=== PATIENT | female | born 1960 | race Caucasian/White ===

== ENCOUNTER 2017-10-14 09:27 | Inpatient (IN) | payer BC ==
[2017-10-14] MEDS ORDERED: TYLENOL 325 MG PO PRN (16:42)
[2017-10-14 17:04] LABS: BASOPHIL % 0.2 % (0.0-0.4); Basophil (Absolute #) 0.02 (0-0.4); Eosinophil % 0.2 % (0.00-5.0); Eosinophil (Absolute #) 0.02 (0-0.5); Granulocyte Absolute (ANC) 7.48 (1.4-6.9); Granulocytes % 72.6 % (36.0-66.0); Hematocrit 33.3 % (35-47); Hemoglobin 11.8 gm/dl (12.0-16.0); Lymphocyte (Absolute #) 1.84 (1.0-4.6); Lymphocytes % 17.8 % (24.0-44.0); Mean Corpuscular Hgb Concent. 35.4 g/dl (32-36); Mean Platelet Volume 10.2 fl (6-9.5); Monocyte (Absolute #) 0.95 (0.0-1.3); Monocytes % 9.2 % (0.0-12.0); Platelet Count 197 K/mm3 (150-450); Red Blood Count 3.47 M/mm3 (4.1-5.4); Red Cell Distribution Width 11.9 % (11.5-14.0); White Blood Count 10.3 K/mm3 (4.0-10.5)
[2017-10-14 17:18] LABS: ALBUMIN 3.8 g/dL (3.5-5.0); ALKALINE PHOSPHATASE 63 U/L (38-126); ANION GAP 11.4 MEQ/L (5-15); BLOOD UREA NITROGEN 8 mg/dL (7-17); CHLORIDE 102 mmol/L (98-107); Carbon Dioxide 26 mmol/L (22-30); Creatinine 1 0.47 mg/dL (0.52-1.04); Glucose 134 mg/dL (74-106); Potassium 3.4 mmol/L (3.5-5.1); SGOT/AST 15 U/L (14-36); SGPT/ALT 11 U/L (0-35); SODIUM 136 mmol/L (137-145); Total Protein 6.8 g/dL (6.3-8.2)
[2017-10-14] MEDS: ROCEPHIN 1 Gm-D5w 50 ml Bag** 1 G/50 ML IVPB IV SCH (17:22)
[2017-10-14] MEDS: Dextrose 5% -0.45 NaCl 1000 ML 1,000 ML IV SCH (17:22)
[2017-10-14] MEDS: Zithromax 500 MG/ 250 ML NaCl Premix 500 MG/250 ML IVPB IV SCH (17:22)
[2017-10-14] MEDS ORDERED: solu-MEDROL 125 MG IV ONE (18:22)
[2017-10-14] MEDS ORDERED: Robitussin 100 MG/5 ML PO PRN (18:23)
[2017-10-14] MEDS ORDERED: Klor Con 10 MEQ PO ONE (18:23)
[2017-10-14] MEDS: DUONEB 0.5-3 MG/3 ml Neb IH SCH ×2 (18:43→22:49)
[2017-10-14] MEDS: Nicoderm CQ 21 MG TOP SCH (18:57)
[2017-10-14] MEDS: solu-MEDROL 125 MG IV SCH (23:57)
[2017-10-15] MEDS: DUONEB 0.5-3 MG/3 ml Neb IH SCH ×6 (02:51→23:57)
[2017-10-15] MEDS: solu-MEDROL 125 MG IV SCH ×4 (06:15→23:53)
[2017-10-15 06:24] LABS: Granulocyte Absolute (ANC) 5.04 (1.4-6.9); Hematocrit 33.9 % (35-47); Hemoglobin 11.8 gm/dl (12.0-16.0); Mean Cell Volume 96.9 fl (78-100); Mean Corpuscular Hemoglobin 33.7 pg (26-32); Mean Corpuscular Hgb Concent. 34.8 g/dl (32-36); Mean Platelet Volume 10.6 fl (6-9.5); Platelet Count 183 K/mm3 (150-450); Red Cell Distribution Width 11.8 % (11.5-14.0); White Blood Count 5.5 K/mm3 (4.0-10.5)
[2017-10-15 06:26] LABS: BLOOD UREA NITROGEN 10 mg/dL (7-17); CHLORIDE 108 mmol/L (98-107); Calcium 9.4 mg/dL (8.4-10.2); Carbon Dioxide 26 mmol/L (22-30); Creatinine 1 0.41 mg/dL (0.52-1.04); Glucose 213 mg/dL (74-106); Potassium 3.8 mmol/L (3.5-5.1); SODIUM 144 mmol/L (137-145)
[2017-10-15 07:34] LABS: Lymphocytes 8 % (24-44); Monocyte 1 % (0.0-12.0); Neutrophils 91 % (36.0-66.0); Total Cells Counted 100
[2017-10-15 07:35] LABS: Platelet Estimate NORMAL (NORMAL)
--- NOTE | 2017-10-15 08:13 | HP ---
HISTORY OF PRESENT ILLNESS: This is a 57 year-old patient of Dr. Anand who presented to [facility] and was found to have a low oxygen saturation of 80-90%. She reported a cough for one week so the nurse practitioner called me concerning a direct admission so she was made a direct admission from [facility]. The patient reports she has had symptoms for a week worse the past the three days with fever up to 102.8F. She reports she would take ibuprofen and this would bring her fever down. She reports decreased energy and shortness of breath when going up and down stairs or walking a short distance along with her heart pounding with the exertion. She reports the cough has been productive of yellow-green phlegm for a week and the cough sometimes wakes her up. She has not been eating as well but has been taking fluids. REVIEW OF SYSTEMS: No nausea or vomiting. No abdominal pain except from the coughing. She has had a headache. No rashes. No lower extremity edema. No dysuria. No constipation. No diarrhea. PAST MEDICAL HISTORY: She had a history of pneumonia in 2005 at which time she used nebulizers and inhalers. No history of asthma or chronic obstructive pulmonary disease. No hospitalizations besides the of her children. PAST SURGICAL HISTORY: Two sections, two D&C's, tonsillectomy, adenoidectomy. MEDICATIONS: Please see the home medication list. ALLERGIES: NKDA. SOCIAL HISTORY: She smoked about three-fourths of a pack of cigarettes a day for the past 16 years. She reports she is planning on quitting. No alcohol use. She is and also has a son that lives at home. PHYSICAL EXAMINATION: VITAL SIGNS: Temperature current 98.8F, temperature max 98.8F, heart rate 97 to 102, respiratory rate 18 to 20, blood pressure 118 over 60, weight 59 kg. Oxygen saturation 90% on room air, 97% on 2 liters nasal cannula. GENERAL: The patient is a pleasant talkative lady sitting up in no acute distress. The family is at the bedside. NECK: Supple. No nuchal rigidity. CVS: Her heart has a regular rate and rhythm. No murmurs, gallops or rubs. CHEST: Breath sounds are equal bilaterally. She has wheezing at the bases bilaterally, crackles and rhonchi in the right side auscultated anteriorly. ABDOMEN: Soft, nontender, nondistended with normal bowel sounds. EXTREMITIES: No clubbing, cyanosis or edema. SKIN: Warm, dry and intact. LABORATORY DATA AND TESTS: The white blood cell count was 10,300 with 72% granulocytes, 17% lymphocytes. Sodium 136, chloride 102, potassium 3.4, glucose 134. Chest x-ray done as an outpatient was read as recurrent right middle lobe infiltrate. Blood cultures and sputum cultures have been ordered. ASSESSMENT AND PLAN: 1) RIGHT MIDDLE LOBE PNEUMONIA: She was started on ceftriaxone and azithromycin. She is getting DuoNeb every four hours. She does have quite a bit of wheezing on her exam. I am concerned that she may have some underlying chronic obstructive pulmonary disease from her tobacco use so I have started Solu-Medrol. Also she has oxygen 2 liters nasal cannula. Will continue close observation. 2) TOBACCO ABUSE: The patient states that she plans on quitting smoking. Will use a nicotine patch here in the hospital.
--- NOTE | 2017-10-15 08:47 | PCM.NOTE ---
Date and Time: 10/15/17 0844 Subjective Assessment: Pt feeling a little better than at discharge. Blas po well. Cough is productive. Subjective fever/chills last night although none recorded. - Review of Systems Constitutional: Fever Objective Exam General Appearance: no apparent distress, alert, other (acutely ill) Neurologic Exam: oriented x 3, cooperative Skin Exam: normal color, warm, dry, No rash Respiratory Exam: rhonchi (LLL, RML), wheezing (scattered throughout), other ( good air exchange), No crackles/rales Cardiovascular Exam: regular rate/rhythm, normal heart sounds, No murmur Extremity Exam: normal inspection, No pedal edema, No swelling Back Exam: normal inspection, No rash OBJECTIVE DATA Vital Signs: Vital Signs - 24 hr Temp Pulse Resp BP Pulse Ox 10/15/17 06:57 97.5 F 76 18 105/57 92 L 10/15/17 04:00 97.4 F 81 14 105/56 93 L 10/15/17 02:52 71 20 90 L 10/15/17 00:00 97.8 F 79 18 106/60 94 L 10/14/17 22:49 88 20 89 L 10/14/17 22:00 92 L 10/14/17 20:00 98.4 F 88 18 107/62 92 L 10/14/17 18:44 78 18 88 L 10/14/17 16:00 97 10/14/17 15:46 98.8 F 97 H 118/60 97 10/14/17 15:42 97 10/14/17 15:39 97 H 20 90 L 10/14/17 15:24 98.8 F 102 H 18 118/60 90 L Oxygen-Last 24 hours O2 Percentage 2 Liters = 28% O2 Percentage 2 Liters = 28% O2 Percentage 2 Liters = 28% Pain Assessment - Last Documented Pain Intensity 0 Pain Scale Used 0-10 Pain Scale Intake and Output: Intake & Output 10/12/17 10/13/17 10/14/17 10/15/17 11:59 11:59 11:59 11:59 Intake Total 2120 Output Total 1650 Balance 470 Weight 59 kg Lab Results: Lab Results-Last 24 Hours 10/14/17 10/14/17 10/15/17 Range/Units 16:45 16:45 05:24 WBC 10.3 5.5 (4.0-10.5) K/mm3 RBC 3.47 L 3.50 L (4.1-5.4) M/mm3 Hgb 11.8 L 11.8 L (12.0-16.0) gm/dl Hct 33.3 L 33.9 L (35-47) % MCV 96.0 96.9 (78-100) fl MCH 34.0 H 33.7 H (26-32) pg MCHC 35.4 34.8 (32-36) g/dl RDW 11.9 11.8 (11.5-14.0) % Plt Count 197 183 (150-450) K/mm3 MPV 10.2 H 10.6 H (6-9.5) fl Gran % 72.6 H (36.0-66.0) % Eos # (Auto) 0.02 (0-0.5) Absolute Lymphs (auto) 1.84 (1.0-4.6) Absolute Monos (auto) 0.95 (0.0-1.3) Lymphocytes % 17.8 L (24.0-44.0) % Monocytes % 9.2 (0.0-12.0) % Eosinophils % 0.2 (0.00-5.0) % Basophils % 0.2 (0.0-0.4) % Absolute Granulocytes 7.48 H 5.04 (1.4-6.9) Segmented Neutrophils 91 H (36.0-66.0) % Lymphocytes (Manual) 8 L (24-44) % Monocytes (Manual) 1 (0.0-12.0) % Basophils # 0.02 (0-0.4) Platelet Estimate NORMAL (NORMAL) Sodium 136 L (137-145) mmol/L Potassium 3.4 L (3.5-5.1) mmol/L Chloride 102 (98-107) mmol/L Carbon Dioxide 26 (22-30) mmol/L Anion Gap 11.4 (5-15) MEQ/L BUN 8 (7-17) mg/dL Creatinine 0.47 L (0.52-1.04) mg/dL Estimated GFR > 60.0 ML/MIN Glucose 134 H (74-106) mg/dL Calcium 9.0 (8.4-10.2) mg/dL Total Bilirubin 0.60 (0.2-1.3) mg/dL AST 15 (14-36) U/L ALT 11 (0-35) U/L Alkaline Phosphatase 63 (38-126) U/L Serum Total Protein 6.8 (6.3-8.2) g/dL Albumin 3.8 (3.5-5.0) g/dL 10/15/17 Range/Units 05:24 WBC (4.0-10.5) K/mm3 RBC (4.1-5.4) M/mm3 Hgb (12.0-16.0) gm/dl Hct (35-47) % MCV (78-100) fl MCH (26-32) pg MCHC (32-36) g/dl RDW (11.5-14.0) % Plt Count (150-450) K/mm3 MPV (6-9.5) fl Gran % (36.0-66.0) % Eos # (Auto) (0-0.5) Absolute Lymphs (auto) (1.0-4.6) Absolute Monos (auto) (0.0-1.3) Lymphocytes % (24.0-44.0) % Monocytes % (0.0-12.0) % Eosinophils % (0.00-5.0) % Basophils % (0.0-0.4) % Absolute Granulocytes (1.4-6.9) Segmented Neutrophils (36.0-66.0) % Lymphocytes (Manual) (24-44) % Monocytes (Manual) (0.0-12.0) % Basophils # (0-0.4) Platelet Estimate (NORMAL) Sodium 144 (137-145) mmol/L Potassium 3.8 (3.5-5.1) mmol/L Chloride 108 H (98-107) mmol/L Carbon Dioxide 26 (22-30) mmol/L Anion Gap 14.0 (5-15) MEQ/L BUN 10 (7-17) mg/dL Creatinine 0.41 L (0.52-1.04) mg/dL Estimated GFR > 60.0 ML/MIN Glucose 213 H (74-106) mg/dL Calcium 9.4 (8.4-10.2) mg/dL Total Bilirubin (0.2-1.3) mg/dL AST (14-36) U/L ALT (0-35) U/L Alkaline Phosphatase (38-126) U/L Serum Total Protein (6.3-8.2) g/dL Albumin (3.5-5.0) g/dL Assessment/Plan (1) Right middle lobe pneumonia Current Visit: No Status: Acute Onset Date: ~10/14/17 Qualifiers: Pneumonia type: due to unspecified organism Qualified Code(s): J18.1 - Lobar pneumonia, unspecified organism Assessment & Plan: On IV rocephin and zithromax, day #2. IV solumedrol 60m q6h. Feeling somewhat better. Will continue current tx; discussed discharge - when afebrile x 24h and feeling better, likely in another day or two. I anticipate she will not be ready to go back to work until early next week. Code(s): J18.1 - LOBAR PNEUMONIA, UNSPECIFIED ORGANISM
[2017-10-15] MEDS: Dextrose 5% -0.45 NaCl 1000 ML 1,000 ML IV SCH (09:04)
[2017-10-15] MEDS: ROCEPHIN 1 Gm-D5w 50 ml Bag** 1 G/50 ML IVPB IV SCH (10:17)
[2017-10-15] MEDS: Zithromax 500 MG/ 250 ML NaCl Premix 500 MG/250 ML IVPB IV SCH (10:17)
[2017-10-15] MEDS: ZOLOFT 50 MG TABLET PO SCH (10:17)
[2017-10-15] MEDS: Nicoderm CQ 21 MG TOP SCH (18:26)
[2017-10-16] MEDS: Dextrose 5% -0.45 NaCl 1000 ML 1,000 ML IV SCH ×2 (00:04→17:18)
[2017-10-16] MEDS: DUONEB 0.5-3 MG/3 ml Neb IH SCH ×6 (03:06→23:04)
[2017-10-16] MEDS: solu-MEDROL 125 MG IV SCH ×3 (05:51→17:58)
--- NOTE | 2017-10-16 09:30 | PCM.NOTE ---
Date and Time: 10/16/17926 Subjective Assessment: patient reports some mild improvement but still very short of breath with exertion and continues to have a harsh cough that is productive Objective Exam General Appearance: no apparent distress, alert Skin Exam: normal color, warm, dry Respiratory Exam: rhonchi, wheezing Cardiovascular Exam: regular rate/rhythm, normal heart sounds Gastrointestinal/Abdomen Exam: soft, No tenderness, No mass Extremity Exam: normal inspection, normal range of motion OBJECTIVE DATA Vital Signs: Vital Signs - 24 hr Temp Pulse Resp BP Pulse Ox 10/16/17 08:00 97.7 F 84 18 98/54 96 10/16/17 07:55 18 10/16/17 07:30 93 L 10/16/17 06:38 84 18 96 10/16/17 04:00 97.8 F 87 18 100/56 93 L 10/16/17 03:00 83 18 93 L 10/16/17 01:00 92 L 10/16/17 00:00 98.5 F 94 H 20 124/63 91 L 10/15/17 23:57 89 18 88 L 10/15/17 19:40 97.6 F 84 18 117/60 91 L 10/15/17 19:39 91 L 10/15/17 19:33 93 H 18 91 L 10/15/17 16:19 97.8 F 100 H 18 131/60 90 L 10/15/17 16:00 90 L 10/15/17 14:49 88 18 91 L 10/15/17 12:11 68 20 120/63 90 L 10/15/17 11:07 85 18 92 L 10/15/17 10:00 92 L Oxygen-Last 24 hours O2 Percentage 3 Liters = 32% O2 Percentage 2 Liters = 28% O2 Percentage 2 Liters = 28% O2 Percentage 2 Liters = 28% Pain Assessment - Last Documented Pain Intensity 0 Pain Scale Used 0-10 Pain Scale Intake and Output: Intake & Output 10/13/17 10/14/17 10/15/17 10/16/17 11:59 11:59 11:59 11:59 Intake Total 2360 1460 Output Total 1650 1450 Balance 710 10 Weight 59 kg Assessment/Plan (1) Right middle lobe pneumonia Current Visit: No Status: Acute Onset Date: ~10/14/17 Qualifiers: Pneumonia type: due to unspecified organism Qualified Code(s): J18.1 - Lobar pneumonia, unspecified organism Assessment & Plan: on rocephin/zithromax, nebs Code(s): J18.1 - LOBAR PNEUMONIA, UNSPECIFIED ORGANISM (2) Acute bronchospasm Current Visit: Yes Status: Acute Assessment & Plan: continue nebs and IV solu medrol
[2017-10-16] MEDS: ZOLOFT 50 MG TABLET PO SCH (10:39)
[2017-10-16] MEDS: ROCEPHIN 1 Gm-D5w 50 ml Bag** 1 G/50 ML IVPB IV SCH (10:39)
[2017-10-16] MEDS: Zithromax 500 MG/ 250 ML NaCl Premix 500 MG/250 ML IVPB IV SCH (11:37)
[2017-10-16] MEDS: MOTRIN 600 MG PO PRN (11:46)
[2017-10-16] MEDS: Nicoderm CQ 21 MG TOP SCH (17:59)
[2017-10-17] MEDS: solu-MEDROL 125 MG IV SCH ×5 (00:09→23:23)
[2017-10-17] MEDS: Dextrose 5% -0.45 NaCl 1000 ML 1,000 ML IV SCH ×2 (00:58→11:26)
[2017-10-17] MEDS: DUONEB 0.5-3 MG/3 ml Neb IH SCH ×6 (02:57→23:14)
[2017-10-17 06:17] LABS: Hematocrit 31.8 % (35-47); Hemoglobin 10.6 gm/dl (12.0-16.0); Mean Cell Volume 99.7 fl (78-100); Mean Corpuscular Hemoglobin 33.2 pg (26-32); Mean Corpuscular Hgb Concent. 33.3 g/dl (32-36); Mean Platelet Volume 10.4 fl (6-9.5); Platelet Count 217 K/mm3 (150-450); Red Blood Count 3.19 M/mm3 (4.1-5.4); Red Cell Distribution Width 12.3 % (11.5-14.0)
[2017-10-17 06:38] LABS: ALBUMIN 3.3 g/dL (3.5-5.0); ALKALINE PHOSPHATASE 66 U/L (38-126); ANION GAP 11.2 MEQ/L (5-15); BILIRUBIN,TOTAL < 0.10 mg/dL (0.2-1.3); BLOOD UREA NITROGEN 7 mg/dL (7-17); CHLORIDE 109 mmol/L (98-107); Calcium 9.2 mg/dL (8.4-10.2); Carbon Dioxide 30 mmol/L (22-30); Glucose 146 mg/dL (74-106); Potassium 4.3 mmol/L (3.5-5.1); SGOT/AST 34 U/L (14-36); SGPT/ALT 41 U/L (0-35); SODIUM 146 mmol/L (137-145); Total Protein 6.1 g/dL (6.3-8.2)
[2017-10-17] MEDS: MOTRIN 600 MG PO PRN ×2 (07:40→17:00)
--- NOTE | 2017-10-17 08:50 | PCM.NOTE ---
Date and Time: 10/17/1749 Subjective Assessment: patient continues to have cough and shortness of breath. feels about the same as yesterday Objective Exam General Appearance: no apparent distress, alert Neurologic Exam: alert, oriented x 3, cooperative, normal mood/affect, nml cerebellar function, sensation nml, No motor deficits Skin Exam: normal color, warm, dry Respiratory Exam: rhonchi, wheezing Cardiovascular Exam: regular rate/rhythm, normal heart sounds Gastrointestinal/Abdomen Exam: soft, No tenderness, No mass Extremity Exam: normal inspection, normal range of motion OBJECTIVE DATA Vital Signs: Vital Signs - 24 hr Temp Pulse Resp BP Pulse Ox 10/17/17 08:00 97.9 F 88 16 130/60 91 L 10/17/17 07:00 78 20 92 L 10/17/17 04:00 97.4 F 65 20 112/52 93 L 10/17/17 02:59 83 18 93 L 10/17/17 01:00 92 L 10/17/17 00:00 98.0 F 77 16 111/57 90 L 10/16/17 23:06 64 16 93 L 10/16/17 20:00 98.0 F 95 H 18 121/71 92 L 10/16/17 19:00 79 18 95 10/16/17 16:20 96 10/16/17 16:00 97.8 F 90 18 132/65 90 L 10/16/17 14:48 75 16 97 10/16/17 13:00 97 10/16/17 12:00 18 10/16/17 11:39 97 H 18 114/56 100 10/16/17 10:56 100 H 18 97 Oxygen-Last 24 hours O2 Percentage 2 Liters = 28% Pain Assessment - Last Documented Pain Intensity 6 Pain Scale Used 0-10 Pain Scale Intake and Output: Intake & Output 10/14/17 10/15/17 10/16/17 10/17/17 11:59 11:59 11:59 11:59 Intake Total 2360 1700 3664 Output Total 1650 1450 600 Balance 522 196 0264 Weight 59 kg Lab Results: Lab Results-Last 24 Hours 10/17/17 10/17/17 Range/Units 05:55 05:55 WBC 12.0 H (4.0-10.5) K/mm3 RBC 3.19 L (4.1-5.4) M/mm3 Hgb 10.6 L (12.0-16.0) gm/dl Hct 31.8 L (35-47) % MCV 99.7 (78-100) fl MCH 33.2 H (26-32) pg MCHC 33.3 (32-36) g/dl RDW 12.3 (11.5-14.0) % Plt Count 217 (150-450) K/mm3 MPV 10.4 H (6-9.5) fl Absolute Granulocytes 10.70 H (1.4-6.9) Sodium 146 H (137-145) mmol/L Potassium 4.3 (3.5-5.1) mmol/L Chloride 109 H (98-107) mmol/L Carbon Dioxide 30 (22-30) mmol/L Anion Gap 11.2 (5-15) MEQ/L BUN 7 (7-17) mg/dL Creatinine 0.40 L (0.52-1.04) mg/dL Estimated GFR > 60.0 ML/MIN Glucose 146 H (74-106) mg/dL Calcium 9.2 (8.4-10.2) mg/dL Total Bilirubin < 0.10 L (0.2-1.3) mg/dL AST 34 (14-36) U/L ALT 41 H (0-35) U/L Alkaline Phosphatase 66 (38-126) U/L Serum Total Protein 6.1 L (6.3-8.2) g/dL Albumin 3.3 L (3.5-5.0) g/dL Assessment/Plan (1) Right middle lobe pneumonia Current Visit: No Status: Acute Onset Date: ~10/14/17 Qualifiers: Pneumonia type: due to unspecified organism Qualified Code(s): J18.1 - Lobar pneumonia, unspecified organism Assessment & Plan: on rocephin/zithromax Code(s): J18.1 - LOBAR PNEUMONIA, UNSPECIFIED ORGANISM (2) Acute bronchospasm Current Visit: Yes Status: Acute Assessment & Plan: continue IV solu medrol and nebs
[2017-10-17] MEDS: ZOLOFT 50 MG TABLET PO SCH (09:31)
[2017-10-17] MEDS: ROCEPHIN 1 Gm-D5w 50 ml Bag** 1 G/50 ML IVPB IV SCH (11:26)
[2017-10-17] MEDS: Zithromax 500 MG/ 250 ML NaCl Premix 500 MG/250 ML IVPB IV SCH (11:58)
[2017-10-17 12:11] LABS: BAND 8 % (0.0-2.0); Lymphocytes 6 % (24-44); Monocyte 4 % (0.0-12.0); Neutrophils 82 % (36.0-66.0); Total Cells Counted 100
[2017-10-17 12:12] LABS: Platelet Estimate NORMAL (NORMAL)
[2017-10-17 12:13] LABS: Basophilic Stippling 1+
[2017-10-17] MEDS: MARY'S MOUTHWASH PO PRN ×2 (13:02→23:22)
[2017-10-17] MEDS: Nicoderm CQ 21 MG TOP SCH (18:45)
[2017-10-18] MEDS: Dextrose 5% -0.45 NaCl 1000 ML 1,000 ML IV SCH (02:59)
[2017-10-18] MEDS: DUONEB 0.5-3 MG/3 ml Neb IH SCH ×2 (03:16→06:41)
[2017-10-18 06:04] LABS: Granulocyte Absolute (ANC) 6.75 (1.4-6.9); Hematocrit 33.9 % (35-47); Hemoglobin 11.3 gm/dl (12.0-16.0); Mean Cell Volume 99.4 fl (78-100); Mean Corpuscular Hemoglobin 33.1 pg (26-32); Mean Corpuscular Hgb Concent. 33.3 g/dl (32-36); Mean Platelet Volume 9.9 fl (6-9.5); Platelet Count 220 K/mm3 (150-450); Red Blood Count 3.41 M/mm3 (4.1-5.4); Red Cell Distribution Width 12.1 % (11.5-14.0)
[2017-10-18] MEDS: solu-MEDROL 125 MG IV SCH (06:11)
[2017-10-18 06:27] LABS: ALBUMIN 3.3 g/dL (3.5-5.0); ALKALINE PHOSPHATASE 63 U/L (38-126); ANION GAP 12.4 MEQ/L (5-15); BILIRUBIN,TOTAL < 0.10 mg/dL (0.2-1.3); BLOOD UREA NITROGEN 9 mg/dL (7-17); CHLORIDE 107 mmol/L (98-107); Calcium 9.2 mg/dL (8.4-10.2); Carbon Dioxide 30 mmol/L (22-30); Creatinine 1 0.39 mg/dL (0.52-1.04); Glucose 148 mg/dL (74-106); Potassium 3.7 mmol/L (3.5-5.1); SGOT/AST 29 U/L (14-36); SGPT/ALT 49 U/L (0-35); SODIUM 146 mmol/L (137-145); Total Protein 5.9 g/dL (6.3-8.2)
[2017-10-18 07:11] VITALS: BP 126/60; PULSE 79; O2SAT 93
[2017-10-18 07:23] LABS: BAND 4 % (0.0-2.0); Lymphocytes 12 % (24-44); Monocyte 2 % (0.0-12.0); Myelocyte 1 %; Neutrophils 80 % (36.0-66.0); Platelet Estimate NORMAL (NORMAL); Promyelocyte 1 %; Total Cells Counted 100; Toxic Granulation 1+
--- NOTE | 2017-10-18 09:00 | PCM.DS ---
Discharge Summary Date of Admission: 10/16/17 09:27 Admitting Physician: GAIL MELTON Primary Care Provider: SUDHAKAR EDOUARD Allergies Allergies No Known Drug Allergies Allergy (Unverified 10/14/17 16:24) Hospital Summary - Hospital Course Hospital Course: patient was admitted with RML pneumonia, cough and wheezing. has been treated with IV abx for pneumonia and given IV solumedrol and nebs. off oxygen, sats are good and she is feeling much better at this time. - Vitals & Intake/Output Vital Signs: Vital Signs Temperature 97.9 F 10/18/17 07:10 Pulse Rate 79 10/18/17 07:10 Respiratory Rate 16 10/18/17 07:10 Blood Pressure 126/60 10/18/17 07:10 O2 Sat by Pulse Oximetry 93 L 10/18/17 07:10 Oxygen-Last Documented O2 Percentage 2 Liters = 28% Intake & Output: Intake & Output 10/15/17 10/16/17 10/17/17 10/18/17 11:59 11:59 11:59 11:59 Intake Total 2360 1700 3904 4200 Output Total 1650 8875 917 3085 Balance 176 138 7489 525 Weight 59 kg - Lab Result Diagrams: 10/18/17 05:50 10/18/17 05:50 Lab Results-Last 24 Hrs: Lab Results-Last 24 Hours 10/17/17 10/18/17 10/18/17 Range/Units 05:55 05:50 05:50 WBC 8.0 (4.0-10.5) K/mm3 RBC 3.41 L (4.1-5.4) M/mm3 Hgb 11.3 L (12.0-16.0) gm/dl Hct 33.9 L (35-47) % MCV 99.4 (78-100) fl MCH 33.1 H (26-32) pg MCHC 33.3 (32-36) g/dl RDW 12.1 (11.5-14.0) % Plt Count 220 (150-450) K/mm3 MPV 9.9 H (6-9.5) fl Absolute Granulocytes 6.75 (1.4-6.9) Segmented Neutrophils 82 H 80 H (36.0-66.0) % Band Neutrophils 8 H 4 H (0.0-2.0) % Lymphocytes (Manual) 6 L 12 L (24-44) % Monocytes (Manual) 4 2 (0.0-12.0) % Myelocytes 1 % Promyelocytes 1 % Toxic Granulation 1+ Platelet Estimate NORMAL NORMAL (NORMAL) RBC Morphology NORMAL ABNORMAL Basophilic Stippling 1+ Sodium 146 H (137-145) mmol/L Potassium 3.7 (3.5-5.1) mmol/L Chloride 107 (98-107) mmol/L Carbon Dioxide 30 (22-30) mmol/L Anion Gap 12.4 (5-15) MEQ/L BUN 9 (7-17) mg/dL Creatinine 0.39 L (0.52-1.04) mg/dL Estimated GFR > 60.0 ML/MIN Glucose 148 H (74-106) mg/dL Calcium 9.2 (8.4-10.2) mg/dL Total Bilirubin < 0.10 L (0.2-1.3) mg/dL AST 29 (14-36) U/L ALT 49 H (0-35) U/L Alkaline Phosphatase 63 (38-126) U/L Serum Total Protein 5.9 L (6.3-8.2) g/dL Albumin 3.3 L (3.5-5.0) g/dL Micro Results-Entire Visit: Microbiology 10/14/17 23:30 Gram Stain - Final Sputum - Expectorant Sputum Culture - Final ORGANISMS ISOLATED ARE CONSISTENT WITH NORMAL RESP ERA MODERATE GROWTH, NO PREDOMINANT ORGANISM 10/14/17 16:45 Blood Culture - Preliminary Blood NO GROWTH TO DATE 10/14/17 16:45 Blood Culture - Preliminary Blood NO GROWTH TO DATE - Procedures and Test Procedures and Tests throughout Hospitalization: Therapy Orders & Screens 10/14/17 15:38 Oxygen NASAL CANNULA 2 lpm Comment: 10/14/17 15:55 Respiratory Therapy Consult ROUTINE Comment: Reason For Exam: right middle lobe pneumonia Diagnosis: right middle lobe pneumonia 10/14/17 19:00 Respiratory Nebulizer Q4H Comment: DUONEB Q4 10/16/17 15:00 Flutter Therapy UD Comment: FLUTTER Q4 Diagnosis: right middle lobe pneumonia Discharge Exam General Appearance: no apparent distress, alert Skin Exam: normal color, warm, dry Respiratory Exam: rhonchi, wheezing Cardiovascular Exam: regular rate/rhythm, normal heart sounds Gastrointestinal/Abdomen Exam: soft, No tenderness, No mass Extremity Exam: normal inspection, normal range of motion Final Diagnosis/Problem List - Final Discharge Diagnosis/Problem (1) Right middle lobe pneumonia Current Visit: No Status: Acute Onset Date: ~10/14/17 (2) Acute bronchospasm Current Visit: Yes Status: Acute Onset Date: ~10/14/17 - Discharge Disposition: Home, Self-Care Condition: Stable Prescriptions: New Albuterol Sulfate [Albuterol Sulfate Hfa] 2 puff IH Q4-6HPRN PRN #2 [email or web address] PRN Reason: Cough Levofloxacin [Levaquin] 500 mg PO DAILY #5 tablet Methylprednisolone Packet [Medrol Dosepack] 4 mg PO UD #30 packet Continue Sertraline HCl 50 mg PO DAILY Instructions: Pneumonia, Adult (DC), Quitting Smoking, Exacerbation of COPD (DC ) Follow up with: SUDHAKAR EDOUARD MD [Primary Care Provider] - 1 Week Forms: Discharge Instructions, Work/School Release Form
== END 2017-10-18 10:37 | disposition home or self-care (01) | DRG 195 ==
LOC: MED SURG 09:27 → OBSVTOIN 10-16 09:27
PROVIDERS: ADMIT Internal Medicine; ATTEND Family Medicine
DX: J18.1 Lobar pneumonia, unspecified organism (principal); J98.01 Acute bronchospasm; Z72.0 Tobacco use
CPT/HCPCS: 36415; 80048; 80053; 85025; 87040; 87070; 94150; 94640; 94760; G0378; J0456; J0696; J2930; A9270-GY

== ENCOUNTER 2020-04-24 12:01 | Emergency (ER) | payer BC ==
[2020-04-24 12:34] VITALS: BP 167/98; PULSE 102; O2SAT 98
--- NOTE | 2020-04-24 12:48 | ERPHSYRPT ---
- History of Present Illness Time Seen by Provider: 04/24/20 12:46 Source: patient Exam Limitations: no limitations Patient Subjective Stated Complaint: Left rib pain Triage Nursing Assessment: Patient ambulated back to ED and transferred self to bed. Patient A+O X 3. Patient's skin pink, warm and dry. Patient complains of left sided rib pain. Patient states two days ago she was wrapping presents when she slipped on a box with sock feet causing her to fall into her brick fireplace. Patient states pain is 7/10 constant aching with intermittent sharp pain to left side of ribs. Patient states it's difficult to cough or take a deep breath. Lungs clear a/p chris. Patient has small abrasion to left side of ribs. Physician History: Left rib pain for 2 days after fall Timing/Duration: yesterday Associated Symptoms: denies symptoms Allergies/Adverse Reactions: No Known Drug Allergies Allergy (Verified 04/24/20 12:23) Home Medications: Bupropion HCl Xl 150 mg [Wellbutrin XL 150 MG] 1 tab PO DAILY 04/24/20 [History] Tramadol HCl 50 mg [Ultram 50 mg] 1 tab PO BID PRN 04/24/20 [History] Hx Influenza Vaccination/Date Given: Yes Hx Pneumococcal Vaccination/Date Given: No Immunizations Up to Date: Yes Travel Risk - International Travel Have you traveled outside of the country in past 3 weeks: No - Coronavirus Screening Are you exhibiting any of the following symptoms?: No Close contact with a COVID-19 positive Pt in past 14-21 Days: No - Review of Systems Constitutional: No Fever, No Chills Eyes: No Symptoms Ears, Nose, & Throat: No Symptoms Respiratory: No Cough, No Dyspnea Cardiac: No Chest Pain, No Edema, No Syncope Abdominal/Gastrointestinal: No Abdominal Pain, No Nausea, No Vomiting, No Diarrhea Genitourinary Symptoms: No Dysuria Musculoskeletal: No Back Pain, No Neck Pain Skin: No Rash Neurological: No Dizziness, No Focal Weakness, No Sensory Changes Psychological: No Symptoms Endocrine: No Symptoms All Other Systems: Reviewed and Negative - Past Medical History Pertinent Past Medical History: Yes Neurological History: No Pertinent History ENT History: No Pertinent History Cardiac History: No Pertinent History Respiratory History: Pneumonia Endocrine Medical History: No Pertinent History Musculoskeletal History: No Pertinent History GI Medical History: No Pertinent History History: No Pertinent History Psycho-Social History: No Pertinent History Female Reproductive Disorders: No Pertinent History - Past Surgical History Past Surgical History: Yes (2 D&C 2 CSectoions) Neuro Surgical History: No Pertinent History Cardiac: No Pertinent History Respiratory: No Pertinent History Gastrointestinal: No Pertinent History Genitourinary: No Pertinent History Musculoskeletal: No Pertinent History Female Surgical History: Dilation & Curettage, Section - Social History Smoking Status: Current every day smoker How long have you smoked: years Exposure to second hand smoke: No Drug Use: none Patient Lives Alone: No - Nursing Vital Signs Nursing Vital Signs: Initial Vital Signs Temperature 98.0 F 04/24/20 12:25 Pulse Rate 102 H 04/24/20 12:25 Respiratory Rate 18 04/24/20 12:25 Blood Pressure 167/98 04/24/20 12:25 O2 Sat by Pulse Oximetry 98 04/24/20 12:25 Pain Scale Pain Intensity 7 - Physical Exam General Appearance: no apparent distress, alert Eye Exam: PERRL/EOMI, eyes nml inspection Ears, Nose, Throat Exam: normal ENT inspection, TMs normal, pharynx normal, moist mucous membranes Neck Exam: normal inspection, non-tender, supple, full range of motion Respiratory Exam: normal breath sounds, chest tenderness (left lower ribs), lungs clear, No respiratory distress Cardiovascular Exam: regular rate/rhythm, normal heart sounds, normal peripheral pulses Gastrointestinal/Abdomen Exam: soft, normal bowel sounds, No tenderness, No mass Back Exam: normal inspection, normal range of motion, No CVA tenderness, No vertebral tenderness Extremity Exam: normal inspection, normal range of motion, pelvis stable Neurologic Exam: alert, oriented x 3, cooperative, normal mood/affect, nml cerebellar function, nml station & gait, sensation nml, No motor deficits Skin Exam: normal color, warm, dry, No rash Lymphatic Exam: No adenopathy SpO2: 98 - Course Nursing assessment & vital signs reviewed: Yes - Radiology Exams Chest X-ray Interpretation: Reviewed by me Ribs X-ray Interpretation: Reviewed by me Ordered Tests: Active Orders 24 hr Category Date Time Status CHEST 2 VIEWS (PA AND LAT) Stat Exams 04/24/20 12:31 Ordered RIBS UNILATERAL Stat Exams 04/24/20 12:31 Ordered Incentive Spirometry UD RT 04/24/20 13:02 Active Medication Summary Discontinued Medications Generic Name Dose Route Start Last Admin Trade Name Noemi PRN Reason Stop Dose Admin Lidocaine 1 patch 04/24/20 13:00 Lidoderm Patch 5% TOP 04/24/20 13:01 ONCE ONE - Progress Progress: improved, pain not gone completely Counseled pt/family regarding: diagnosis, need for follow-up, rad results - Departure Departure Disposition: Home Clinical Impression: Fracture of rib of left side Qualifiers: Encounter type: initial encounter Rib fracture type: single rib Fracture type: closed Qualified Code(s): S22.32XA - Fracture of one rib, left side, initial encounter for closed fracture Contusion of rib on left side Qualifiers: Encounter type: initial encounter Qualified Code(s): S20.212A - Contusion of left front wall of thorax, initial encounter Condition: Stable Critical Care Time: No Referrals: SUDHAKAR EDOUARD MD [Primary Care Provider] - Instructions: Bruised Rib, Rib Fracture (DC) Additional Instructions: Discharge/Care Plan RINEFRAIN ESCAMILLA was seen on 04/24/20 in the Emergency Room. The patient was counseled regarding Diagnosis,Lab results, Imaging studies, need for follow up and when to return to the Emergency Room. Prescriptions given: Discharge Note I have spoken with the patient and/or caregivers. I have explained the patient's condition, diagnosis and treatment plan based on the information available to me at this time. I have answered the patient's and/or caregiver's questions and addressed any concerns. The patient and/or caregivers have as good understanding of the patient's diagnosis, condition and treatment plan as can be expected at this point. The vital signs have been stable. The patient's condition is stable and appropriate for discharge from the emergency department. The patient will pursue further outpatient evaluation with the primary care physician or other designated or consulting physician as outlined in the discharge instructions. The patient and/or caregivers are agreeable to this plan of care and follow-up instructions have been explained in detail. The patient and/or caregivers have received these instruction. The patient/and or caregivers are aware that any significant change in condition or worsening of symptoms should prompt an immediate return to this or the closest emergency department or call 911. EFRAIN GAR was seen on 04/24/20 n the Emergency Room. At that time you were treated for an emergent condition, during your visit Laboratory, Radiology and/or other procedures may have been ordered. It is very important that you follow-up with your Primary Care Physician SUDHAKAR EDOUARD within the next 24- 48 hours to review your Emergency Room visit and the final results of testing that was ordered. Some test results such as Urine Cultures, Blood Cultures, and other cultures if ordered will not be finalized for 24-48 hours. If you do not have a Primary Care Provider please call the medical records department at [phone] ext [phone] to obtain a copy of your results or you may sign into our patient portal to obtain these results by visiting us @ [email or web address] and completing the following steps: 1. Click on the Patient Portal link 2. Click the Patient Self Enrollment Link to complete the enrollment form and entering your 3. Once the enrollment form is completed you will receive an email with a temporary ID and password at the email address you provided. 4. Next choose a user name and password. Your user name must be at least 4 characters long and your password must be at least 4 characters long. 5. Choose a security question from the list and provide your answer to the question. If you already have signed into the Health Portal you may access your Health Care Information 26/11 by the following steps: 1. Login to our website @ [email or web address] 2. Enter your original user name and password. FAQS The [facility] Health Portal is an online tool that contains your Lab Results, Radiology Reports, Visit History, Discharge Instructions and Health Summary Lab and Radiology Results will not be available for 72 hours on the portal. The Portal is a secure site, passwords are encryted and URLs are re-written so they cannot be copied and pasted. You and authorized family members are the only ones who can access your Portal. Also there is a timeout feature that protects your information if you leave the Portal page open. If you have technical difficulty please use the Contact Us link on the page this will allow you to submit any questions you have regarding the Portal or you may contact the Medical Record Department at [phone]. Prescriptions: Lidocaine HCl 5% Patch [Lidoderm Patch 5%] 1 patch TOP DAILY 15 Days #15 patch
[2020-04-24] MEDS ORDERED: Lidoderm Patch 5% TOP ONE (13:00)
--- NOTE | 2020-04-24 19:23 | XRAY ---
Indication: Pain following fall. Comparison: None 2 view left ribs demonstrates minimal double curvature thoracolumbar scoliosis. ER clinician questions nondisplaced anterior 9th rib fracture. No other bony, articular, or soft tissue abnormalities.
--- NOTE | 2020-04-24 19:25 | XRAY ---
Indication: Left rib pain following fall. Comparison: December 17, 2019. PA/lateral chest again demonstrates normal heart and lungs. Bony thorax intact. No new/acute findings.
== END 2020-04-24 13:21 | disposition home or self-care (01) ==
LOC: ED 12:01
DX: S22.32XA Fracture of one rib, left side, initial encounter for closed fracture (principal); S20.212A Contusion of left front wall of thorax, initial encounter; R07.81 Pleurodynia
CPT/HCPCS: 71046; 71100; 99283; A9270-GY

== ENCOUNTER 2021-11-11 04:14 | Emergency (ER) | payer BC ==
[2021-11-11 04:20] VITALS: O2SAT 95
[2021-11-11] MEDS ORDERED: Zofran 4 MG/2 ML VIAL IV ONE (04:40)
[2021-11-11] MEDS ORDERED: Zofran 4 MG/2 ML VIAL ONE (04:40)
[2021-11-11] MEDS ORDERED: TORAdol 30 mg Injection ONE (04:40)
[2021-11-11] MEDS ORDERED: Sodium Chloride 0.9% 1000 ML 1,000 ML ONE (04:40)
[2021-11-11] MEDS ORDERED: Sodium Chloride 0.9% 1000 ML 1,000 ML IV STA (04:40)
[2021-11-11] MEDS ORDERED: TORAdol 30 mg Injection IV ONE (04:40)
[2021-11-11] MEDS ORDERED: PROTONIX 40 MG IV IV ONE ×2 (04:41→04:43)
--- NOTE | 2021-11-11 04:47 | ERPHSYRPT ---
- History of Present Illness Historian: patient Exam Limitations: no limitations Patient Subjective Stated Complaint: abd pain with n/v/d Triage Nursing Assessment: pt c/o abd pain which began around around 2200. Pt has vomited x1, diarrhea x3, denies any indigestion. Abd soft with hypoactive bsx4 quad, nontender on palpation, non radiating pain. Physician History: 61 yo wf w epigastric pain since 22:00 accompanied by N/V/D. Pain is 3/10, s harp, wo radiation. It has been up to a 9 and nothing makes it better or worse. She denies melena/hematochezia/hematemesis/dysuria/hematuria/fever/cough/chest pain. Timing/Duration: other (22:00) Quality: sharpness Abdominal Pain Onset Location: epigastric Pain Radiation: no radiation Severity of Pain-Max: severe Severity of Pain-Current: mild Modifying Factors: Improves With: nothing Associated Symptoms: diarrhea, loss of appetite, nausea, vomiting, No back, No chest pain, No diaphoresis, No fever/chills, No fatigue, No headache, No heartburn, No neck pain, No rash, No shortness of breath, No syncope, No weakness Previous symptoms: no prior history Allergies/Adverse Reactions: No Known Drug Allergies Allergy (Verified 11/11/21 04:29) Home Medications: Bupropion HCl Xl 150 mg [Wellbutrin XL 150 MG] 2 tab PO DAILY 04/24/20 [History] Tramadol HCl 50 mg [Ultram 50 mg] 1 tab PO BID PRN 04/24/20 [History] Omeprazole 40 mg PO DAILY 11/11/21 [History] Hx Tetanus, Diphtheria Vaccination/Date Given: Yes Hx Influenza Vaccination/Date Given: Yes Hx Pneumococcal Vaccination/Date Given: No Immunizations Up to Date: Yes Travel Risk - International Travel Have you traveled outside of the country in past 3 weeks: No - Coronavirus Screening Are you exhibiting any of the following symptoms?: Yes Symptoms: Vomiting/Diarrhea Close contact with a COVID-19 positive Pt in past 14-21 Days: No - Vaccine Status Have you recieved a Covid-19 vaccination: Yes Residential Support Worker: Moderna - Vaccination Dates Date of 2cond Vaccination (if applicable): . - Review of Systems Constitutional: No Symptoms Eyes: No Symptoms Ears, Nose, & Throat: No Symptoms Respiratory: No Symptoms Cardiac: No Symptoms Abdominal/Gastrointestinal: No Symptoms, Abdominal Pain, Nausea, Vomiting, Diarrhea Genitourinary Symptoms: No Symptoms Musculoskeletal: No Symptoms Skin: No Symptoms Neurological: No Symptoms Psychological: No Symptoms Endocrine: No Symptoms Hematologic/Lymphatic: No Symptoms Immunological/Allergic: No Symptoms - Past Medical History Pertinent Past Medical History: Yes Neurological History: No Pertinent History ENT History: No Pertinent History Cardiac History: No Pertinent History Respiratory History: Pneumonia Endocrine Medical History: No Pertinent History Musculoskeletal History: No Pertinent History GI Medical History: No Pertinent History History: No Pertinent History Psycho-Social History: Depression Female Reproductive Disorders: No Pertinent History - Past Surgical History Past Surgical History: Yes Neuro Surgical History: No Pertinent History Cardiac: No Pertinent History Respiratory: No Pertinent History Gastrointestinal: No Pertinent History Genitourinary: No Pertinent History Musculoskeletal: No Pertinent History Female Surgical History: Dilation & Curettage, Section - Social History Smoking Status: Current every day smoker How long have you smoked: 15 yrs Exposure to second hand smoke: No Drug Use: none Patient Lives Alone: No - Nursing Vital Signs Nursing Vital Signs: Initial Vital Signs Temperature 97.7 F 11/11/21 04:19 Pulse Rate 113 H 11/11/21 04:19 Respiratory Rate 18 11/11/21 04:19 Blood Pressure 176/99 11/11/21 04:19 O2 Sat by Pulse Oximetry 95 11/11/21 04:19 Pain Scale Pain Intensity 0 Hypertensive/tachycardic - Physical Exam General Appearance: no apparent distress Eye Exam: PERRL/EOMI, eyes nml inspection Ears, Nose, Throat Exam: normal ENT inspection, TMs normal, pharynx normal, moist mucous membranes Neck Exam: normal inspection, non-tender, supple, full range of motion, No meningismus, No mass, No Brudzinski, No Kernig's, No carotid bruit Respiratory Exam: normal breath sounds, lungs clear, airway intact, No respiratory distress Cardiovascular Exam: tachycardia, capillary refill <2 sec Gastrointestinal/Abdomen Exam: soft, normal bowel sounds, tenderness (Mild epigastric TTP/No guarding or rebound) Back Exam: normal inspection, normal range of motion, No CVA tenderness, No vertebral tenderness Extremity Exam: normal inspection, normal range of motion Neurologic Exam: alert, oriented x 3, cooperative, partition notcher II-XII nml as tested, normal mood/affect, nml station & gait, sensation nml, No motor deficits, No sensory deficit Skin Exam: normal color, warm, dry, No rash Lymphatic Exam: No adenopathy SpO2 Interpretation: normal SpO2: 95 O2 Delivery: Room Air - Course Nursing assessment & vital signs reviewed: Yes - CT Exams Abdomen/Pelvis CT Interpretation: Tele-radiologist Report (Mild bowel wall thickening) Ordered Tests: Active Orders 24 hr Category Date Time Status ABDOMEN AND PELVIS W/0 CONTRAS [CT] Stat Exams 11/11/21 05:02 Taken AMYLASE Stat Lab 11/11/21 04:58 Completed CBC W DIFF Stat Lab 11/11/21 04:58 Completed CMP Stat Lab 11/11/21 04:58 Completed LIPASE Stat Lab 11/11/21 04:58 Completed TROPONIN Q3H Lab 11/11/21 04:58 Completed TROPONIN Q3H Lab 11/11/21 07:45 Ordered TROPONIN Q3H Lab 11/11/21 10:45 Ordered TROPONIN Q3H Lab 11/11/21 13:45 Ordered TROPONIN Q3H Lab 11/11/21 16:45 Ordered UA W/RFX CULTURE Stat Lab 11/11/21 04:46 Completed Medication Summary Discontinued Medications Generic Name Dose Route Start Last Admin Trade Name Freq PRN Reason Stop Dose Admin Sodium Chloride 1,000 mls @ 999 mls/hr 11/11/21 04:40 11/11/21 04:45 Sodium Chloride 0.9% 1000 Ml IV 11/11/21 05:40 999 mls/hr .Q1H1M STA Administration Sodium Chloride Confirm 11/11/21 04:40 Sodium Chloride 0.9% 1000 Ml Administered 11/11/21 04:41 Dose 1,000 mls @ ud .ROUTE .STK-MED ONE Ketorolac Tromethamine 15 mg 11/11/21 04:40 11/11/21 04:44 Ketorolac Tromethamine 30 Mg/Ml Inj IV 11/11/21 04:41 15 mg STAT ONE Administration Ketorolac Tromethamine Confirm 11/11/21 04:40 Ketorolac Tromethamine 30 Mg/Ml Inj Administered 11/11/21 04:41 Dose 30 mg .ROUTE .STK-MED ONE Ondansetron HCl 4 mg 11/11/21 04:40 11/11/21 04:44 Ondansetron Hcl 4 Mg/2 Ml Vial IV 11/11/21 04:41 4 mg STAT ONE Administration Ondansetron HCl Confirm 11/11/21 04:40 Ondansetron Hcl 4 Mg/2 Ml Vial Administered 11/11/21 04:41 Dose 4 mg .ROUTE .STK-MED ONE Pantoprazole Sodium 40 mg 11/11/21 04:41 11/11/21 04:44 Pantoprazole 40 Mg Vial IV 11/11/21 04:42 40 mg STAT ONE Administration Pantoprazole Sodium Confirm 11/11/21 04:43 Pantoprazole 40 Mg Vial Administered 11/11/21 04:44 Dose 40 mg IV .STK-MED ONE Lab/Rad Data: Laboratory Result Diagrams 11/11/21 04:58 11/11/21 04:58 Laboratory Results 11/11/21 11/11/21 11/11/21 Range/Units 05:11 04:58 04:58 WBC (4.0-10.5) x10^3/uL RBC (4.1-5.4) x10^6/uL Hgb (12.0-16.0) g/dL Hct (35-47) % MCV (78-100) fL MCH (26-32) pg MCHC (32-36) g/dL RDW (11.5-14.0) % Plt Count (150-450) x10^3/uL MPV (7.5-11.0) fL Gran % (36.0-66.0) % Immature Gran % (Auto) (0.00-0.4) % Nucleat RBC Rel Count (0.00-0.1) % Eos # (Auto) (0-0.5) x10^3/uL Immature Gran # (Auto) (0.00-0.03) x10^3u/L Absolute Lymphs (auto) (1.0-4.6) x10^3/uL Absolute Monos (auto) (0.0-1.3) x10^3/uL Absolute Nucleated RBC (0.00-0.01) x10^3u/L Lymphocytes % (24.0-44.0) % Monocytes % (0.0-12.0) % Eosinophils % (0.00-5.0) % Basophils % (0.0-0.4) % Absolute Granulocytes (1.4-6.9) x10^3/uL Basophils # (0-0.4) x10^3/uL Sodium 141 (137-145) mmol/L Potassium 3.8 (3.5-5.1) mmol/L Chloride 106 (98-107) mmol/L Carbon Dioxide 25 (22-30) mmol/L Anion Gap 13.6 (5-15) MEQ/L BUN 10 (7-17) mg/dL Creatinine 0.63 (0.52-1.04) mg/dL Estimated GFR > 60.0 ML/MIN Glucose 126 H (74-106) mg/dL Calcium 9.4 (8.4-10.2) mg/dL Total Bilirubin 0.80 (0.2-1.3) mg/dL AST 31 (14-36) U/L ALT 28 (0-35) U/L Alkaline Phosphatase 89 (38-126) U/L Troponin I < 0.012 (0.000-0.034) ng/mL Serum Total Protein 7.2 (6.3-8.2) g/dL Albumin 4.4 (3.5-5.0) g/dL Amylase 48 (30-110) U/L Lipase 25 (23-300) U/L Urinalys Dipstick Clnc Urine Color (YELLOW) Urine Appearance (CLEAR) Urine pH (5-6) Ur Specific Adamant (1.005-1.025) POC Urine Protein Conf (Negative) Urine Ketones (NEGATIVE) Urine Nitrite (NEGATIVE) Urine Bilirubin (NEGATIVE) Urine Urobilinogen (0-1) mg/dL Urine Leukocytes (NEGATIVE) Urine WBC (Auto) (0-5) /HPF Urine RBC (Auto) (0-2) /HPF U Epithel Cells (Auto) (FEW) /HPF Urine Bacteria (Auto) (NEGATIVE) /HPF Urine RBC (0-5) Gal/ul Other Casts (Auto) (NEGATIVE) /LPF Urine Mucus (Auto) (NEGATIVE) /HPF Ur Culture Indicated? Urine Glucose (NEGATIVE) mg/dL Influenza Type A Ag NEGATIVE (NEGATIVE) Influenza Type B Ag NEGATIVE (NEGATIVE) RSV (PCR) NEGATIVE (Negative) SARS-CoV-2 (PCR) NEGATIVE (NEGATIVE) 11/11/21 11/11/21 Range/Units 04:58 04:46 WBC 12.0 H (4.0-10.5) x10^3/uL RBC 4.45 (4.1-5.4) x10^6/uL Hgb 15.6 (12.0-16.0) g/dL Hct 44.8 (35-47) % MCV 100.7 H (78-100) fL MCH 35.1 H (26-32) pg MCHC 34.8 (32-36) g/dL RDW 11.4 L (11.5-14.0) % Plt Count 269 (150-450) x10^3/uL MPV 9.8 (7.5-11.0) fL Gran % 87.0 H (36.0-66.0) % Immature Gran % (Auto) 0.3 (0.00-0.4) % Nucleat RBC Rel Count 0.0 (0.00-0.1) % Eos # (Auto) 0.06 (0-0.5) x10^3/uL Immature Gran # (Auto) 0.04 H (0.00-0.03) x10^3u/L Absolute Lymphs (auto) 0.61 L (1.0-4.6) x10^3/uL Absolute Monos (auto) 0.83 (0.0-1.3) x10^3/uL Absolute Nucleated RBC 0.00 (0.00-0.01) x10^3u/L Lymphocytes % 5.1 L (24.0-44.0) % Monocytes % 6.9 (0.0-12.0) % Eosinophils % 0.5 (0.00-5.0) % Basophils % 0.2 (0.0-0.4) % Absolute Granulocytes 10.40 H (1.4-6.9) x10^3/uL Basophils # 0.02 (0-0.4) x10^3/uL Sodium (137-145) mmol/L Potassium (3.5-5.1) mmol/L Chloride (98-107) mmol/L Carbon Dioxide (22-30) mmol/L Anion Gap (5-15) MEQ/L BUN (7-17) mg/dL Creatinine (0.52-1.04) mg/dL Estimated GFR ML/MIN Glucose (74-106) mg/dL Calcium (8.4-10.2) mg/dL Total Bilirubin (0.2-1.3) mg/dL AST (14-36) U/L ALT (0-35) U/L Alkaline Phosphatase (38-126) U/L Troponin I (0.000-0.034) ng/mL Serum Total Protein (6.3-8.2) g/dL Albumin (3.5-5.0) g/dL Amylase (30-110) U/L Lipase (23-300) U/L Urinalys Dipstick Clnc MAIN LAB Urine Color YELLOW (YELLOW) Urine Appearance CLEAR (CLEAR) Urine pH 8.5 (5-6) Ur Specific Adamant 1.020 (1.005-1.025) POC Urine Protein Conf NEGATIVE (Negative) Urine Ketones SMALL-15 (NEGATIVE) Urine Nitrite NEGATIVE (NEGATIVE) Urine Bilirubin NEGATIVE (NEGATIVE) Urine Urobilinogen 0.2 (0-1) mg/dL Urine Leukocytes NEGATIVE (NEGATIVE) Urine WBC (Auto) 0-2 (0-5) /HPF Urine RBC (Auto) 0-2 (0-2) /HPF U Epithel Cells (Auto) RARE (FEW) /HPF Urine Bacteria (Auto) NONE SEEN (NEGATIVE) /HPF Urine RBC NEGATIVE (0-5) Gal/ul Other Casts (Auto) 2-5 (NEGATIVE) /LPF Urine Mucus (Auto) SLIGHT (NEGATIVE) /HPF Ur Culture Indicated? NO Urine Glucose NEGATIVE (NEGATIVE) mg/dL Influenza Type A Ag (NEGATIVE) Influenza Type B Ag (NEGATIVE) RSV (PCR) (Negative) SARS-CoV-2 (PCR) (NEGATIVE) - Progress Progress: unchanged, improved Progress Note: 11/11/21 06:03 1L NS bolus/15mg IV Toradol/40mg IV Protonix/4mg IV Zofran w improvement 11/11/21 06:44 Pt feels much better Counseled pt/family regarding: lab results, diagnosis, need for follow-up, rad results - Departure Clinical Impression: Nausea & vomiting, Diarrhea Condition: Stable Critical Care Time: No Referrals: SUDHAKAR EDOUARD MD [Primary Care Provider] - Follow up/PCP as directed Instructions: Severe Abdominal Pain, Adult (DC) Additional Instructions: Fluids/Rest Return to ER for increasing pain or temperature greater than 100.5 Bentyl for pain/zofran for nausea-vomiting Prescriptions: Ondansetron ODT 4 MG [Zofran Odt 4 mg] 4 mg PO Q6H PRN PRN #10 tablet PRN Reason: Nausea Dicyclomine HCl 20 mg [Bentyl 20 mg] 20 mg PO QID PRN #14 tablet
[2021-11-11 05:06] LABS: Basophil (Absolute #) 0.02 x10^3/uL (0-0.4); Eosinophil % 0.5 % (0.00-5.0); Eosinophil (Absolute #) 0.06 x10^3/uL (0-0.5); Hematocrit 44.8 % (35-47); Hemoglobin 15.6 g/dL (12.0-16.0); Lymphocyte (Absolute #) 0.61 x10^3/uL (1.0-4.6); Lymphocytes % 5.1 % (24.0-44.0); Mean Cell Volume 100.7 fL (78-100); Mean Corpuscular Hemoglobin 35.1 pg (26-32); Mean Corpuscular Hgb Concent. 34.8 g/dL (32-36); Mean Platelet Volume 9.8 fL (7.5-11.0); Monocyte (Absolute #) 0.83 x10^3/uL (0.0-1.3); Monocytes % 6.9 % (0.0-12.0); Platelet Count 269 x10^3/uL (150-450); Red Blood Count 4.45 x10^6/uL (4.1-5.4); Red Cell Distribution Width 11.4 % (11.5-14.0)
[2021-11-11 05:15] LABS: ALBUMIN 4.4 g/dL (3.5-5.0); ALKALINE PHOSPHATASE 89 U/L (38-126); AMYLASE 48 U/L (30-110); ANION GAP 13.6 MEQ/L (5-15); BLOOD UREA NITROGEN 10 mg/dL (7-17); CHLORIDE 106 mmol/L (98-107); Calcium 9.4 mg/dL (8.4-10.2); Carbon Dioxide 25 mmol/L (22-30); Creatinine 1 0.63 mg/dL (0.52-1.04); EST GLOMERULAR FILTRATION RATE > 60.0 ML/MIN; Glucose 126 mg/dL (74-106); LIPASE 25 U/L (23-300); Potassium 3.8 mmol/L (3.5-5.1); SGOT/AST 31 U/L (14-36); SGPT/ALT 28 U/L (0-35); SODIUM 141 mmol/L (137-145); Total Protein 7.2 g/dL (6.3-8.2)
[2021-11-11 05:29] LABS: Epithelial Cells RARE /HPF (FEW); Mucus SLIGHT /HPF (NEGATIVE); RBC 0-2 /HPF (0-2); WBC 0-2 /HPF (0-5)
[2021-11-11 05:30] LABS: Appearance CLEAR (CLEAR); Bilirubin NEGATIVE (NEGATIVE); Dipstick done @ ? MAIN LAB; Glucose NEGATIVE (NEGATIVE); Ketones SMALL-15 (NEGATIVE); Nitrite NEGATIVE (NEGATIVE); Ph 8.5 (5-6); Protein,Urine Dip NEGATIVE (Negative); RBC NEGATIVE Ery/ul (0-5); Urobilinogen 0.2 mg/dL (0-1)
[2021-11-11 05:31] LABS: Bacteria NONE SEEN /HPF (NEGATIVE); Urine Cultured Indicated? NO
[2021-11-11 05:50] LABS: INFLUENZA A NEGATIVE (NEGATIVE); INFLUENZA B NEGATIVE (NEGATIVE); RESPIRATORY SYNCTIAL VIRUS NEGATIVE (Negative); SARS-CoV-2 Xpert Express NEGATIVE (NEGATIVE)
[2021-11-11 07:02] VITALS: BP 127/73; PULSE 97
--- NOTE | 2021-11-11 21:22 | XRAY ---
Indication: Abdomen pain, nausea, vomiting, diarrhea. Multiple contiguous axial images obtained through the abdomen and pelvis without contrast. Comparison: None Lung bases clear. Heart not enlarged. Noncontrasted stomach and bowel loops appear nonobstructed. Several small bowel loops are mildly fluid distended with bowel wall thickening favoring enteritis. Normal appendix. Minimal sigmoid diverticulosis without diverticulitis. No free fluid/air. Remaining liver, gallbladder, pancreas, spleen, adrenal glands, kidneys, ureters, bladder, and uterus are unremarkable for noncontrast exam. Minimal aortoiliac calcifications without AAA. Osseous structures intact. Impression: 1. Mild fluid distended small bowel loops with wall thickening favoring enteritis. 2. Sigmoid diverticulosis without diverticulitis. Comment: Preliminary interpretation made by [facility]. No critical discrepancy.
== END 2021-11-11 07:08 | disposition home or self-care (01) ==
LOC: ED 04:14
DX: R11.2 Nausea with vomiting, unspecified (principal); R19.7 Diarrhea, unspecified; R10.13 Epigastric pain; Z72.0 Tobacco use; Z79.899 Other long term (current) drug therapy
CPT/HCPCS: 0241U; 36000; 36415; 74176; 80053; 81015; 82150; 83690; 84484; 85025; 96374; 96375; 99284; J1885; J2405

== ENCOUNTER 2024-08-16 18:05 | Observation (INO) | payer BC ==
--- NOTE | 2024-08-16 18:28 | ERPHSYRPT ---
- History of Present Illness Source: patient, family Exam Limitations: no limitations Patient Subjective Stated Complaint: Pt reports being short of breath for several weeks and has had a full cardiac workup and it came back negative, pt has not had a chest xray Triage Nursing Assessment: Pt brought to the ER by her , hypertensive, denies pain, pulses normal, skin n/w/d, small amounts of thick sputum but has not seen the color, reports oxygen being in the mid 80's at home while resting, denies chest pain, doesn't appear to be in any distress Timing/Duration: week(s) (Least 3 weeks. Worse in the last week and a half), worse Cough Quality/Degree: mild, productive cough, sputum (White sputum) Possible Cause: occasional episodes Modifying Factors: Improves With: coughing, exertion Associated Symptoms: cough, shortness of breath, wheezing, No fever, No chest pain/soreness Hx Tetanus, Diphtheria Vaccination/Date Given: Yes Hx Influenza Vaccination/Date Given: Yes Hx Pneumococcal Vaccination/Date Given: No <KAT JOHNSTON - Last Filed: 08/16/24 18:54> <MIKE PRINCE - Last Filed: 08/16/24 22:56> - History of Present Illness Time Seen by Provider: 08/16/24 18:27 Physician History: This is a 64-year-old white female patient who arrives by private vehicle accompanied by her spouse and is a patient of Dr. Medel, aquatics instructor Dr. Handy and private advisor Dr. Ty. She has not seen her private advisor in over 2 years and could not get an appointment until 25 August 2024. Patient states that she has had shortness of breath intermittently for the last few weeks. It has been worse for the last week and a half. She does not have chest pain. She s tates that she has already had a "full cardiac workup". That cardiac workup was negative per her report. Patient in the last several days has had thick, whitish sputum. She said that she underwent calcium scoring recently but has not had a formal chest x-ray. At home, she states her oxygen saturation level was in the mid 80s but as low as 83% on room air. Her symptoms seem to be worse at night. She arrives to the emergency department with a room air oxygen saturation level of 95%. Patient has no known drug allergies. Patient has a history of gastroesophageal reflux disease, depression, COPD, hyperlipidemia and hypertension. (KAT JOHNSTON) Allergies/Adverse Reactions: No Known Drug Allergies Allergy (Verified 08/16/24 18:25) Home Medications: Tramadol HCl 50 mg [Ultram 50 mg] 1 tab PO BID PRN 04/24/20 [History] Ergocalciferol (Vitamin D2) [Vitamin D2] 50,000 unit PO Q7D 08/16/24 [History] Levothyroxine Sodium 50 Mcg [Synthroid 50 Mcg] 50 mcg PO DAILY 08/16/24 [History] Metoprolol Succinate 25 mg Xl* [Toprol-Xl 25MG Tablets] 25 mg PO DAILY 08/16/24 [History] Montelukast Sodium 10 mg [Singulair 10 MG] 10 mg PO DAILY 08/16/24 [History] Omeprazole 40 mg PO DAILY 08/16/24 [History] Travel Risk - International Travel Have you traveled outside of the country in past 3 weeks: No - Emerging Infectious Disease Are you exhibiting symptoms associated with any current EIDs: Yes Symptoms: Cough: New Onset, Shortness of Breath <KAT JOHNSOTN - Last Filed: 08/16/24 18:54> - Review of Systems Constitutional: No Symptoms Eyes: No Symptoms Ears, Nose, & Throat: No Symptoms Respiratory: Cough, Dyspnea on Exertion (LIN), Wheezing Cardiac: No Symptoms Abdominal/Gastrointestinal: No Symptoms Genitourinary Symptoms: No Symptoms Musculoskeletal: No Symptoms Skin: No Symptoms Neurological: No Symptoms Psychological: No Symptoms Endocrine: No Symptoms Hematologic/Lymphatic: No Symptoms Immunological/Allergic: No Symptoms All Other Systems: Reviewed and Negative <KAT JOHNSTON - Last Filed: 08/16/24 18:54> - Past Medical History Pertinent Past Medical History: Yes Neurological History: No Pertinent History ENT History: No Pertinent History Cardiac History: No Pertinent History, High Cholesterol, Hypertension Respiratory History: COPD, Pneumonia Endocrine Medical History: No Pertinent History, Hypothyroidism Musculoskeletal History: No Pertinent History GI Medical History: No Pertinent History, GERD History: No Pertinent History Psycho-Social History: Depression Female Reproductive Disorders: No Pertinent History - Past Surgical History Past Surgical History: Yes Neuro Surgical History: No Pertinent History Cardiac: No Pertinent History Respiratory: No Pertinent History Gastrointestinal: No Pertinent History Genitourinary: No Pertinent History Musculoskeletal: No Pertinent History Female Surgical History: Dilation & Curettage, Section Other Surgical History: bunion removal - Social History Smoking Status: Current every day smoker How long have you smoked: 15 yrs Exposure to second hand smoke: Yes Drug Use: none - Social Determinants of Health Will the patient participate in the screening: Yes Do you worry about a steady place to live?: No Do you have any problems with any of the following?: No known problems In the past 12 months,have you had to go without utilities?: No Transportation Issues: No Has anyone in your support network made you feel unsafe?: No Have you or anyone in your house had to go w/o enough food: No <KAT JOHNSTON - Last Filed: 08/16/24 18:54> - Physical Exam General Appearance: no apparent distress, alert, anxiety Eye Exam: PERRL/EOMI, eyes nml inspection Ears, Nose, Throat Exam: normal ENT inspection, moist mucous membranes Neck Exam: normal inspection, non-tender, supple, full range of motion Respiratory Exam: airway intact, wheezing (Bilateral expiratory wheezes. Left greater than right), No chest tenderness, No respiratory distress Cardiovascular Exam: regular rate/rhythm, normal heart sounds, normal peripheral pulses Gastrointestinal/Abdomen Exam: soft, normal bowel sounds, No tenderness Pelvic Exam: not done Rectal Exam: not done Back Exam: normal inspection, normal range of motion, No CVA tenderness, No vertebral tenderness Extremity Exam: normal inspection, normal range of motion, pelvis stable Neurologic Exam: alert, oriented x 3, cooperative, electronic systems technician II-XII nml as tested, nml cerebellar function, nml station & gait, sensation nml Skin Exam: normal color, warm, dry Lymphatic Exam: No adenopathy SpO2 Interpretation: borderline oxygenation SpO2: 94 O2 Delivery: Room Air <KAT JOHNSTON - Last Filed: 08/16/24 18:54> - Nursing Vital Signs Nursing Vital Signs: Initial Vital Signs Temperature 98.1 F 08/16/24 18:12 Pulse Rate 98 H 08/16/24 18:12 Respiratory Rate 14 08/16/24 18:12 Blood Pressure 169/96 08/16/24 18:12 O2 Sat by Pulse Oximetry 95 08/16/24 18:12 Pain Scale Pain Intensity 0 - Course Nursing assessment & vital signs reviewed: Yes <KAT JOHNSTON - Last Filed: 08/16/24 18:54> Ordered Tests: Active Orders 24 hr Category Date Time Status Bedrest TOLERATED Activity 08/16/24 22:15 Active Channel Installer STAT Care 08/16/24 18:32 Active Code Status Order ROUTINE Care 08/16/24 22:14 Active EKG-ER Only STAT Care 08/16/24 18:31 Active IV Insertion STAT Care 08/16/24 18:[address] in Observation ROUTINE Care 08/16/24 22:14 Active Pulse Oximetry (ED) STAT Care 08/16/24 18:31 Active CHEST WITH CONTRAST [CT] Stat Exams 08/16/24 19:55 Completed ECHO W/2D AND DOPPLER [US] Routine Exams 08/16/24 22:15 Ordered CBC AM.LAB Lab 08/17/24 04:00 Ordered CBC W DIFF Stat Lab 08/16/24 18:51 Completed CMP AM.LAB Lab 08/17/24 04:00 Ordered CMP Stat Lab 08/16/24 18:51 Completed D-DIMER QUANTITATIVE Stat Lab 08/16/24 18:51 Completed Lactic Acid Stat Lab 08/16/24 19:01 Completed MAGNESIUM Stat Lab 08/16/24 18:51 Completed NT PRO BNPII Stat Lab 08/16/24 18:51 Completed PROTIME WITH INR Stat Lab 08/16/24 18:51 Completed TROPONIN Q4H Lab 08/16/24 18:51 Completed TROPONIN Q4H Lab 08/16/24 22:45 Ordered TROPONIN Q4H Lab 08/17/24 02:45 Ordered Respiratory Therapy Assessment DAILY RT 08/16/24 19:28 Active Medication Summary Generic Name Dose Route Start Last Admin Trade Name Freq PRN Reason Stop Dose Admin Acetaminophen 325 mg 08/16/24 22:14 Acetaminophen 325 Mg Tablet PO 09/15/24 22:13 Q4H PRN PRN PAIN, FEVER, HEADACHE Albuterol/Ipratropium 3 ml 08/17/24 01:00 Ipratropium/Albuterol Sulfate 3 Ml Ampul.Neb IH 09/16/24 00:59 Q6HRT BARBARA Sodium Chloride 1,000 mls @ 100 mls/hr 08/16/24 22:15 08/16/24 22:24 Sodium Chloride 0.9% 1000 Ml IV 09/15/24 22:14 100 mls/hr .Q10H BARBARA Administration Discontinued Medications Generic Name Dose Route Start Last Admin Trade Name Noemi PRN Reason Stop Dose Admin Albuterol/Ipratropium 3 ml 08/16/24 19:28 08/16/24 19:28 Ipratropium/Albuterol Sulfate 3 Ml Ampul.Neb IH 08/16/24 19:29 3 ml STAT ONE Administration Methylprednisolone Sodium 0 mg 08/16/24 18:51 08/16/24 19:17 Succinate 125 mg/ Sterile IV 08/16/24 18:52 125 mg Water 2 ml STAT ONE Administration Methylprednisolone Sodium Succinate Confirm 08/16/24 19:01 Methylprednis Sod Succ 125 Mg/2 Ml Vial Administered 08/16/24 19:02 Dose 125 mg .ROUTE .[employer] TEK[employer] ONE Sterile Water Confirm 08/16/24 19:01 Water For Injection,Sterile 10 Ml Vial Administered 08/16/24 19:02 Dose 10 ml IJ .Pandoo TEK-MED ONE Lab/Rad Data: Laboratory Result Diagrams 08/16/24 18:51 08/16/24 18:51 Laboratory Results 08/16/24 08/16/24 08/16/24 Range/Units 19:01 18:51 18:51 WBC (3.98-10.04) x10^3/uL RBC (3.93-5.22) x10^6/uL Hgb (11.2-15.7) g/dL Hct (34.1-44.9) % MCV (79.4-94.8) fL MCH (25.6-32.2) pg MCHC (32.2-35.5) g/dL RDW (11.7-14.4) % Plt Count (182-369) x10^3/uL MPV (9.4-12.3) fL Gran % (34.0-71.1) % Immature Gran % (Auto) (0.001-0.429) % Nucleat RBC Rel Count (0.00-0.2) % Eos # (Auto) (0.04-0.36) x10^3/uL Immature Gran # (Auto) (0.001-0.031) x10^3u/L Absolute Lymphs (auto) (1.18-3.74) x10^3/uL Absolute Monos (auto) (0.24-0.86) x10^3/uL Absolute Nucleated RBC (0.00-0.012) x10^3u/L Lymphocytes % (19.3-51.7) % Monocytes % (4.7-12.5) % Eosinophils % (0.7-5.8) % Basophils % (0.1-1.2) % Absolute Granulocytes (1.56-6.13) x10^3/uL Basophils # (0.01-0.08) x10^3/uL PT (9.4-12.5) SECONDS INR (0.8-3.0) D-Dimer (0.0-0.50) mg/L Sodium (135-145) mmol/L Potassium (3.5-5.1) mmol/L Chloride (98-107) mmol/L Carbon Dioxide (22-30) mmol/L Anion Gap (5-15) MEQ/L BUN (7-17) mg/dL Creatinine (0.52-1.04) mg/dL Estimated GFR ML/MIN Glucose (74-106) mg/dL Lactic Acid 1.4 (0.4-2.0) Calcium (8.4-10.2) mg/dL Magnesium (1.6-2.3) mg/dL Total Bilirubin (0.2-1.3) mg/dL AST (14-36) U/L ALT (0-35) U/L Alkaline Phosphatase (38-126) U/L Troponin I < 0.012 (0.000-0.033) ng/mL NT-Pro-B Natriuret Pep (<300) pg/mL Serum Total Protein (6.3-8.2) g/dL Albumin (3.5-5.0) g/dL Influenza Type A Ag NEGATIVE (NEGATIVE) Influenza Type B Ag NEGATIVE (NEGATIVE) RSV (PCR) NEGATIVE (NEGATIVE) SARS-CoV-2 (PCR) NEGATIVE (NEGATIVE) 08/16/24 08/16/24 08/16/24 Range/Units 18:51 18:51 18:51 WBC 7.6 (3.98-10.04) x10^3/uL RBC 4.15 (3.93-5.22) x10^6/uL Hgb 15.0 (11.2-15.7) g/dL Hct 42.6 (34.1-44.9) % MCV 102.7 H (79.4-94.8) fL MCH 36.1 H (25.6-32.2) pg MCHC 35.2 (32.2-35.5) g/dL RDW 11.8 (11.7-14.4) % Plt Count 238 (182-369) x10^3/uL MPV 10.2 (9.4-12.3) fL Gran % 47.6 (34.0-71.1) % Immature Gran % (Auto) 0.5 H (0.001-0.429) % Nucleat RBC Rel Count 0.0 (0.00-0.2) % Eos # (Auto) 0.09 (0.04-0.36) x10^3/uL Immature Gran # (Auto) 0.04 H (0.001-0.031) x10^3u/L Absolute Lymphs (auto) 3.09 (1.18-3.74) x10^3/uL Absolute Monos (auto) 0.71 (0.24-0.86) x10^3/uL Absolute Nucleated RBC 0.00 (0.00-0.012) x10^3u/L Lymphocytes % 40.8 (19.3-51.7) % Monocytes % 9.4 (4.7-12.5) % Eosinophils % 1.2 (0.7-5.8) % Basophils % 0.5 (0.1-1.2) % Absolute Granulocytes 3.61 (1.56-6.13) x10^3/uL Basophils # 0.04 (0.01-0.08) x10^3/uL PT 10.2 (9.4-12.5) SECONDS INR 0.93 (0.8-3.0) D-Dimer 0.33 (0.0-0.50) mg/L Sodium 136 (135-145) mmol/L Potassium 4.4 (3.5-5.1) mmol/L Chloride 98 (98-107) mmol/L Carbon Dioxide 29 (22-30) mmol/L Anion Gap 13.7 (5-15) MEQ/L BUN 10 (7-17) mg/dL Creatinine 0.71 (0.52-1.04) mg/dL Estimated GFR 95.5 ML/MIN Glucose 104 (74-106) mg/dL Lactic Acid (0.4-2.0) Calcium 9.7 (8.4-10.2) mg/dL Magnesium 1.8 (1.6-2.3) mg/dL Total Bilirubin 1.00 (0.2-1.3) mg/dL AST 51 H (14-36) U/L ALT 58 H (0-35) U/L Alkaline Phosphatase 62 (38-126) U/L Troponin I (0.000-0.033) ng/mL NT-Pro-B Natriuret Pep 79.4 (<300) pg/mL Serum Total Protein 7.3 (6.3-8.2) g/dL Albumin 4.7 (3.5-5.0) g/dL Influenza Type A Ag (NEGATIVE) Influenza Type B Ag (NEGATIVE) RSV (PCR) (NEGATIVE) SARS-CoV-2 (PCR) (NEGATIVE) <KAT JOHNSTON - Last Filed: 08/16/24 18:54> <MIKE PRINCE - Last Filed: 08/16/24 22:56> - Progress Progress Note: 08/16/24 18:58 My medical decision making of the assignment of at least moderate complexity to this patient's medical issue today is based on review of the patient's past med ical history, review the patient's medication list, reviewed patient drug allergy list, history present illness and physical findings on examination. The workup in this patient includes placement of intravenous line, respiratory therapy evaluation nebulizer treatment, infusion of Solu-Medrol intravenously, CBC, CMP, D-dimer level, BNP, troponin level, twelve-lead EKG, lactic acid level, viral swabs. If the D-dimer is elevated the plan is to order a CT scan of the chest with contrast. If it is not elevated, we will order CT scan of the chest without contrast. Differential diagnosis includes is not limited to pulmonary embolus, myocardial infarction, CHF, COPD exacerbation, pneumonia I am transferring care of this patient to Dr. Prince at shift change. He will follow-up with the pending results and make final disposition. (KAT JOHNSTON) 08/16/24 22:50 Patient was reexamined she is requiring oxygen to maintain her saturations she was placed on 2 to 3 L she was reevaluated and feels much better I ordered an ABG however patient is refusing TPE study was obtained this reveals.Patient was reexamined she is requiring oxygen to maintain her saturations she was placed on 2 to 3 L she was reevaluated and feels much better I ordered an ABG however patient is refusing TPE study was obtained this reveals. Few focal faint areas of groundglass haziness in anterior segments of left upper lobe right middle lobe and anterior Patient was reexamined she is requiring oxygen to maintain her saturations she was placed on 2 to 3 L she was reevaluated and feels much better I ordered an ABG however patient is refusing TPE study was obtained this reveals. Few focal faint areas of groundglass haziness in anterior segments of left upper lobe right middle lobe and anterior basal segments of right lower lobe possible inflammatory infective changes recommend clinical correlation #2 mild atelectasis in medial segment of right middle lobe and anterior basal segment of left lower lobe. Patient was updated with the results and informed of the need for admission as she is requiring oxygen she is agreeable. Rocephin and Zithromax were ordered. DuoNebs were ordered. She informs me that she has been seen by her aquatics instructor and has had a negative workup that included an echocardiogram. Patient and her have no further questions at this time. case d/w the hospitalist who will admit the patient 08/16/24 22:55 (MIKE PRINCE) Medical Desision Making - Discussion of managment Care discussed with:: hospitalist Agreed on:: decision to admit, place in obs <MIKE PRINCE - Last Filed: 08/16/24 22:56> - Departure Departure Disposition: Home Critical Care Time: No <KAT JOHNSTON - Last Filed: 08/16/24 18:54> - Departure Departure Disposition: Observation <MIKE PRINCE - Last Filed: 08/16/24 22:56> - Departure Clinical Impression: Shortness of breath, Cough, Acute bronchospasm Condition: Stable Referrals: SUDHAKAR MEDEL MD [Primary Care Provider] - Follow up/PCP as directed
[2024-08-16 18:54] LABS: Absolute Neutrophil Ct (ANC) 3.61 x10^3/uL (1.56-6.13); BASOPHIL % 0.5 % (0.1-1.2); Basophil (Absolute #) 0.04 x10^3/uL (0.01-0.08); Eosinophil % 1.2 % (0.7-5.8); Eosinophil (Absolute #) 0.09 x10^3/uL (0.04-0.36); Hematocrit 42.6 % (34.1-44.9); IMMATURE GRAN # 0.04 x10^3u/L (0.001-0.031); IMMATURE GRAN % 0.5 % (0.001-0.429); Lymphocyte (Absolute #) 3.09 x10^3/uL (1.18-3.74); Lymphocytes % 40.8 % (19.3-51.7); Mean Cell Volume 102.7 fL (79.4-94.8); Mean Corpuscular Hemoglobin 36.1 pg (25.6-32.2); Mean Corpuscular Hgb Concent. 35.2 g/dL (32.2-35.5); Mean Platelet Volume 10.2 fL (9.4-12.3); Monocyte (Absolute #) 0.71 x10^3/uL (0.24-0.86); Monocytes % 9.4 % (4.7-12.5); Neutrophil % 47.6 % (34.0-71.1); Platelet Count 238 x10^3/uL (182-369); Red Blood Count 4.15 x10^6/uL (3.93-5.22); Red Cell Distribution Width 11.8 % (11.7-14.4); White Blood Count 7.6 x10^3/uL (3.98-10.04)
[2024-08-16] MEDS ORDERED: Sterile H2O 10 ml IJ ONE (19:01)
[2024-08-16] MEDS ORDERED: solu-MEDROL ONE (19:01)
[2024-08-16] MEDS: solu-MEDROL 125 MG, Sterile H2O 10 ml 2 ML IV ONE (19:17)
[2024-08-16 19:19] LABS: ALBUMIN 4.7 g/dL (3.5-5.0); ANION GAP 13.7 MEQ/L (5-15); Calcium 9.7 mg/dL (8.4-10.2); Creatinine 1 0.71 mg/dL (0.52-1.04); EST GLOMERULAR FILTRATION RATE 95.5 ML/MIN; MAGNESIUM 1.8 mg/dL (1.6-2.3); NT PRO BNPII 79.4 pg/mL (<300); Potassium 4.4 mmol/L (3.5-5.1); Total Protein 7.3 g/dL (6.3-8.2)
[2024-08-16] MEDS: DUONEB 0.5-3 MG/3 ml Neb IH ONE (19:28)
[2024-08-16 19:31] LABS: INFLUENZA A NEGATIVE (NEGATIVE); INFLUENZA B NEGATIVE (NEGATIVE); RESPIRATORY SYNCTIAL VIRUS NEGATIVE (NEGATIVE); SARS-CoV-2 Xpert Express NEGATIVE (NEGATIVE)
[2024-08-16 19:41] LABS: INR 0.93 (0.8-3.0); PROTIME 10.2 SECONDS (9.4-12.5)
[2024-08-16] MEDS ORDERED: TYLENOL 325 MG PO PRN (22:14)
[2024-08-16] MEDS ORDERED: TYLENOL 325 MG ONE (22:21)
[2024-08-16] MEDS ORDERED: Sodium Chloride 0.9% 1000 ML 1,000 ML ONE (22:21)
[2024-08-16] MEDS: Sodium Chloride 0.9% 1000 ML 1,000 ML IV SCH (22:24)
--- NOTE | 2024-08-16 22:25 | XRAY ---
CLINICAL HISTORY: acute hypoxia COMPARISON: 01/31/2023 TECHNIQUE: Contiguous axial CT images of the chest were acquired with administration of intravenous contrast. Coronal and sagittal reconstructions were obtained. One of the following dose reduction techniques were utilized for this exam: Automated exposure control, adjustment of the mA and/or kV according to patient size, use of iterative reconstruction. FINDINGS: Lungs: Few focal faint areas of ground-glass haziness in anterior segment of left upper lobe, right middle lobe and the anterobasal segment of right lower lobe. Mild atelectatic changes in medial segment of right middle lobe and anterobasal segment of left lower lobe. No evidence of interstitial lung disease or emphysema. No pleural effusion or pleural thickening. Mediastinum: Few subcentimetric non-specific mediastinal nodes. The heart size is within normal limits. Trachea and Main Bronchi: The trachea and main bronchi are patent without evidence of obstruction or abnormality. Chest Wall: The chest wall is unremarkable with no evidence of soft tissue or bony abnormalities. Bone: Mild degenerative changes in thoracic spine. Hemangioma in L1 vertebral body. Upper Abdomen: Visualized portions of the liver, spleen, adrenal glands, and kidneys are unremarkable. IMPRESSION: 1. Few focal faint areas of ground-glass haziness in anterior segment of left upper lobe, right middle lobe and krunal basal segment of right lower lobe. Possible inflammatory/infective changes.Recommended clinical correlation (new interval findings). 2. Mild atelectatic changes in medial segment of right middle lobe and anterobasal segment of left lower lobe. Mild interval progression since prior CT study. Electronically Signed by: Yash Holder MD. (08/16/2024 22:21:27 EDT)
[2024-08-16] MEDS: ROCEPHIN 1 GM / 100 ML NaCl 1 GM/100 ML IVPB IV SCH (23:05)
[2024-08-16] MEDS ORDERED: ROCEPHIN 1 GM / 100 ML NaCl 1 GM/100 ML IVPB IV ONE (23:21)
[2024-08-17] MEDS ORDERED: Sodium Chloride 0.9% 250 ML 250 ML IV ONE (00:05)
[2024-08-17] MEDS ORDERED: ZITHROMAX IV IV ONE (00:05)
[2024-08-17] MEDS: ZITHROMAX IV*** 500 MG in Sodium Chloride 0.9% 250 ML 250 ML IV SCH ×2 (00:09→21:48)
[2024-08-17] MEDS ORDERED: VENTOLIN COMMON CANISTER IH PRN (00:11)
[2024-08-17] MEDS ORDERED: ULTRAM 50 MG PO PRN (00:11)
--- NOTE | 2024-08-17 00:23 | PCM.HP ---
History of Present Illness - Chief Complaint Chief Complaint: shortness of breath Date: 08/17/24 History of Present Illness: is a 64 year old female with PMH of COPD, Hypothyroidism, tobacco abuse presents to hospital c/o shortness of breath, cough and fatigue. Patient states her symptoms started 9 days ago and has progressively worsened. She was in [place] and had sick contact with family members who had RSV. Patient states that she has cough productive of phlegm, which is worsened at night time. She also complaints of shortness of breath not improved by her PRN albuterol. She states that she has a pulse ox at home and noticed her O2 staying between 88- 92%. She does not use O2 at home. Denies any fevers or chills. No rhinorrhea. No other complaints. Continues to smoke 1/2 ppd. In ED, patient was noted to be hypoxic requiring supplemental O2. Labs were mostly stable. There was a concern for PE, so a CTA was completed that showed no PE, but showed " Few focal faint areas of ground-glass haziness in anterior segment of left upper lobe, right middle lobe and krunal basal segment of right lower lobe. Possible inflammatory/infective changes.Recommended clinical correlation (new interval findings)." Patient was started on IV abx, breathing treatments and admitted for PNA and COPD exac - Review of Systems Additional Findings: Pertinent postive as in HPI, otherwise all other systems negative Medications & Allergies Home Medications: Home Medication List Albuterol Sulfate [Albuterol Sulfate Hfa] 2 puff IH Q4-6HPRN PRN #2 hfa.aer.ad 10/18/17 [Rx Confirmed 08/16/24] Tramadol HCl 50 mg [Ultram 50 mg] 1 tab PO BID PRN 04/24/20 [History Confirmed 08/16/24] Ergocalciferol (Vitamin D2) [Vitamin D2] 50,000 unit PO Q7D 08/16/24 [History Confirmed 08/16/24] Levothyroxine Sodium 50 Mcg [Synthroid 50 Mcg] 50 mcg PO DAILY 08/16/24 [History Confirmed 08/16/24] Metoprolol Succinate 25 mg Xl* [Toprol-Xl 25MG Tablets] 25 mg PO DAILY 08/16/24 [History Confirmed 08/16/24] Montelukast Sodium 10 mg [Singulair 10 MG] 10 mg PO DAILY 08/16/24 [History Confirmed 08/16/24] Omeprazole 40 mg PO DAILY 08/16/24 [History Confirmed 08/16/24] Allergies/Adverse Reactions: Allergies Allergy/AdvReac Type Severity Reaction Status Date / Time No Known Drug Allergies Allergy Verified 08/16/24 18:25 - Past Medical History Past Medical History: Yes Neurological History: No Pertinent History ENT History: No Pertinent History Cardiac History: No Pertinent History, High Cholesterol, Hypertension Respiratory History: COPD, Pneumonia Endocrine Medical History: No Pertinent History, Hypothyroidism Musculoskelatal History: No Pertinent History GI Medical History: No Pertinent History, GERD History: No Pertinent History Pyscho-Social History: Depression Reproductive Disorders: No Pertinent History - Past Surgical History Past Surgical History: Yes Neuro Surgical History: No Pertinent History Cardiac History: No Pertinent History Respiratory Surgery: No Pertinent History GI Surgical History: No Pertinent History Genitourinary Surgical Hx: No Pertinent History Musculskeletal Surgical Hx: No Pertinent History Female Surgical History: Dilation & Curettage, Section Other Surgical History: bunion removal - Social History Smoking Status: Current every day smoker How long have you smoked: 15 yrs Exposure to second hand smoke: No Alcohol: Weekly, Daily Drug Use: none - Social Determinants of Health Will the patient participate in the screening: Yes Do you worry about a steady place to live?: No Do you have any problems with any of the following?: No known problems In the past 12 months,have you had to go without utilities?: No Have you or anyone in your house had to go without enough: No Transportation Issues: No Has anyone in your support network made you feel unsafe?: No Does the patient want assistance with any of the above?: No - Physical Exam Vital Signs: Vital Signs - 24 hr Temp Pulse Resp BP BP Pulse Ox 08/16/24 23:29 97.7 F 89 19 109/65 97 08/16/24 23:00 89 18 114/68 93 L 08/16/24 22:59 87 26 H 93 L 08/16/24 22:50 87 15 95 08/16/24 22:40 86 21 95 08/16/24 22:32 85 22 94 L 08/16/24 22:00 83 16 117/63 93 L 08/16/24 21:30 94 H 27 H 104/74 91 L 08/16/24 21:00 82 23 119/82 92 L 08/16/24 20:32 86 19 140/83 93 L 08/16/24 20:00 84 15 115/85 97 08/16/24 19:30 89 22 113/81 97 08/16/24 19:29 84 20 90 L 08/16/24 19:01 94 L 08/16/24 19:00 88 23 134/86 98 08/16/24 18:40 93 L 08/16/24 18:30 96 H 19 120/102 90 L 08/16/24 18:12 98.1 F 98 H 20 169/96 94 L General Appearance: no apparent distress Neurologic Exam: oriented x 3 Eye Exam: PERRL/EOMI, scleral icterus Ears, Nose, Throat Exam: normal ENT inspection Respiratory Exam: wheezing Cardiovascular Exam: regular rate/rhythm Gastrointestinal/Abdomen Exam: soft, No tenderness Extremity Exam: normal range of motion, No deformities Skin Exam: normal color, No cyanosis Results - Labs Lab/Micro Results: Lab Results-Last 24 Hours 08/16/24 08/16/24 08/16/24 Range/Units 18:51 18:51 18:51 WBC 7.6 (3.98-10.04) x10^3/uL RBC 4.15 (3.93-5.22) x10^6/uL Hgb 15.0 (11.2-15.7) g/dL Hct 42.6 (34.1-44.9) % MCV 102.7 H (79.4-94.8) fL MCH 36.1 H (25.6-32.2) pg MCHC 35.2 (32.2-35.5) g/dL RDW 11.8 (11.7-14.4) % Plt Count 238 (182-369) x10^3/uL MPV 10.2 (9.4-12.3) fL Gran % 47.6 (34.0-71.1) % Immature Gran % (Auto) 0.5 H (0.001-0.429) % Nucleat RBC Rel Count 0.0 (0.00-0.2) % Eos # (Auto) 0.09 (0.04-0.36) x10^3/uL Immature Gran # (Auto) 0.04 H (0.001-0.031) x10^3u/L Absolute Lymphs (auto) 3.09 (1.18-3.74) x10^3/uL Absolute Monos (auto) 0.71 (0.24-0.86) x10^3/uL Absolute Nucleated RBC 0.00 (0.00-0.012) x10^3u/L Lymphocytes % 40.8 (19.3-51.7) % Monocytes % 9.4 (4.7-12.5) % Eosinophils % 1.2 (0.7-5.8) % Basophils % 0.5 (0.1-1.2) % Absolute Granulocytes 3.61 (1.56-6.13) x10^3/uL Basophils # 0.04 (0.01-0.08) x10^3/uL PT 10.2 (9.4-12.5) SECONDS INR 0.93 (0.8-3.0) D-Dimer 0.33 (0.0-0.50) mg/L Sodium 136 (135-145) mmol/L Potassium 4.4 (3.5-5.1) mmol/L Chloride 98 (98-107) mmol/L Carbon Dioxide 29 (22-30) mmol/L Anion Gap 13.7 (5-15) MEQ/L BUN 10 (7-17) mg/dL Creatinine 0.71 (0.52-1.04) mg/dL Estimated GFR 95.5 ML/MIN Glucose 104 (74-106) mg/dL Lactic Acid (0.4-2.0) Calcium 9.7 (8.4-10.2) mg/dL Magnesium 1.8 (1.6-2.3) mg/dL Total Bilirubin 1.00 (0.2-1.3) mg/dL AST 51 H (14-36) U/L ALT 58 H (0-35) U/L Alkaline Phosphatase 62 (38-126) U/L Troponin I (0.000-0.033) ng/mL NT-Pro-B Natriuret Pep 79.4 (<300) pg/mL Serum Total Protein 7.3 (6.3-8.2) g/dL Albumin 4.7 (3.5-5.0) g/dL Influenza Type A Ag (NEGATIVE) Influenza Type B Ag (NEGATIVE) RSV (PCR) (NEGATIVE) SARS-CoV-2 (PCR) (NEGATIVE) 08/16/24 08/16/24 08/16/24 Range/Units 18:51 18:51 19:01 WBC (3.98-10.04) x10^3/uL RBC (3.93-5.22) x10^6/uL Hgb (11.2-15.7) g/dL Hct (34.1-44.9) % MCV (79.4-94.8) fL MCH (25.6-32.2) pg MCHC (32.2-35.5) g/dL RDW (11.7-14.4) % Plt Count (182-369) x10^3/uL MPV (9.4-12.3) fL Gran % (34.0-71.1) % Immature Gran % (Auto) (0.001-0.429) % Nucleat RBC Rel Count (0.00-0.2) % Eos # (Auto) (0.04-0.36) x10^3/uL Immature Gran # (Auto) (0.001-0.031) x10^3u/L Absolute Lymphs (auto) (1.18-3.74) x10^3/uL Absolute Monos (auto) (0.24-0.86) x10^3/uL Absolute Nucleated RBC (0.00-0.012) x10^3u/L Lymphocytes % (19.3-51.7) % Monocytes % (4.7-12.5) % Eosinophils % (0.7-5.8) % Basophils % (0.1-1.2) % Absolute Granulocytes (1.56-6.13) x10^3/uL Basophils # (0.01-0.08) x10^3/uL PT (9.4-12.5) SECONDS INR (0.8-3.0) D-Dimer (0.0-0.50) mg/L Sodium (135-145) mmol/L Potassium (3.5-5.1) mmol/L Chloride (98-107) mmol/L Carbon Dioxide (22-30) mmol/L Anion Gap (5-15) MEQ/L BUN (7-17) mg/dL Creatinine (0.52-1.04) mg/dL Estimated GFR ML/MIN Glucose (74-106) mg/dL Lactic Acid 1.4 (0.4-2.0) Calcium (8.4-10.2) mg/dL Magnesium (1.6-2.3) mg/dL Total Bilirubin (0.2-1.3) mg/dL AST (14-36) U/L ALT (0-35) U/L Alkaline Phosphatase (38-126) U/L Troponin I < 0.012 (0.000-0.033) ng/mL NT-Pro-B Natriuret Pep (<300) pg/mL Serum Total Protein (6.3-8.2) g/dL Albumin (3.5-5.0) g/dL Influenza Type A Ag NEGATIVE (NEGATIVE) Influenza Type B Ag NEGATIVE (NEGATIVE) RSV (PCR) NEGATIVE (NEGATIVE) SARS-CoV-2 (PCR) NEGATIVE (NEGATIVE) - Radiology Impressions Radiology Exams & Impressions: Radiology Procedures Category Date Time Status CHEST WITH CONTRAST [CT] Stat Exams 08/16/24 19:55 Completed - Other Procedures and Tests Respiratory Therapy 08/16/24 23:47 Smoking Cessation Education ONCE 08/17/24 00:06 Respiratory Therapy Consult ROUTINE Assessment/Plan (1) COPD exacerbation Current Visit: Yes Status: Acute Assessment & Plan: - Continue O2 support, wean off as tolerated. Does not use O2 at home - Breathing treatments q6h - IV steroids BID 40mg - Antibiotics - strict smoking cessation advised Code(s): J44.1 - CHRONIC OBSTRUCTIVE PULMONARY DISEASE W (ACUTE) EXACERBATION (2) Pneumonia Current Visit: Yes Status: Acute Assessment & Plan: - Influenza, COVID, RSV negative - check complete Resp panel - sputum culture - IV antibiotics for CAP coverage. Code(s): J18.9 - PNEUMONIA, UNSPECIFIED ORGANISM (3) Cough Current Visit: Yes Status: Acute Onset Date: ~10/14/17 Assessment & Plan: - add PRN antitussive agents. Code(s): R05 - COUGH * DO NOT USE * (4) SOB (shortness of breath) Current Visit: Yes Status: Acute Onset Date: ~10/14/17 Assessment & Plan: - treat underlying etiology. Wean off as tolerated - might need home O2 eval prior to discharge. Code(s): R06.02 - SHORTNESS OF BREATH Telemedicine Encounter - Telemedicine Encounter Telemedicine Encounter: "The entirety of this encounter was performed via Telemedicine" This visit was performed using real-time audio and video connection between my location and [facility] locationwith the assistance of a surrogateat the [facility] location. Written or verbal consent was obtained from the patient/guardian to perform this visit [facility]. Any patient questions regarding the telemedicine interaction were answered.
[2024-08-17] MEDS: DUONEB 0.5-3 MG/3 ml Neb IH SCH (00:30)
[2024-08-17] MEDS ORDERED: DUONEB 0.5-3 MG/3 ml Neb IH SCH (01:00)
[2024-08-17 04:51] LABS: Hematocrit 38.3 % (34.1-44.9); Hemoglobin 13.8 g/dL (11.2-15.7); Mean Corpuscular Hemoglobin 37.1 pg (25.6-32.2); Mean Platelet Volume 10.3 fL (9.4-12.3); Platelet Count 222 x10^3/uL (182-369); Red Blood Count 3.72 x10^6/uL (3.93-5.22); Red Cell Distribution Width 11.7 % (11.7-14.4); White Blood Count 3.6 x10^3/uL (3.98-10.04)
[2024-08-17 05:08] LABS: ALBUMIN 4.3 g/dL (3.5-5.0); ANION GAP 15.9 MEQ/L (5-15); BILIRUBIN,TOTAL 0.6 mg/dL (0.2-1.3); Calcium 8.8 mg/dL (8.4-10.2); Creatinine 1 0.54 mg/dL (0.52-1.04); EST GLOMERULAR FILTRATION RATE 103.4 ML/MIN; Potassium 3.8 mmol/L (3.5-5.1); Total Protein 6.9 g/dL (6.3-8.2)
[2024-08-17 08:57] LABS: ATYPICAL LYMPHS 1 %; Lymphocytes 16 % (19.3-51.7); Monocyte 2 % (4.7-12.5); Neutrophils 81 % (34.0-71.1); Total Cells Counted 100
[2024-08-17 08:58] LABS: Macrocytosis 1+; Platelet Estimate NORMAL (NORMAL)
[2024-08-17] MEDS: Protonix 40MG Tablet PO SCH (09:48)
[2024-08-17] MEDS: solu-MEDROL 40 MG, Sterile H2O 10 ml 1 ML IV SCH (09:48)
[2024-08-17] MEDS: SYNTHROID 50 MCG PO SCH (09:48)
[2024-08-17] MEDS: Singulair 10 MG PO SCH (09:48)
[2024-08-17] MEDS: ENOXAPARIN SODIUM SQ SCH (09:49)
[2024-08-17] MEDS: Toprol-Xl 25MG Tablets PO SCH (09:49)
[2024-08-17] MEDS: Tessalon Perles 100 MG PO PRN (17:11)
[2024-08-17] MEDS: ROCEPHIN 1 GM / 100 ML NaCl 1 GM/100 ML IVPB IV SCH (21:05)
[2024-08-18 04:33] LABS: Absolute Neutrophil Ct (ANC) 7.38 x10^3/uL (1.56-6.13); BASOPHIL % 0.1 % (0.1-1.2); Basophil (Absolute #) 0.01 x10^3/uL (0.01-0.08); Eosinophil % 0.1 % (0.7-5.8); Eosinophil (Absolute #) 0.01 x10^3/uL (0.04-0.36); Hematocrit 37.5 % (34.1-44.9); Hemoglobin 12.7 g/dL (11.2-15.7); IMMATURE GRAN # 0.04 x10^3u/L (0.001-0.031); IMMATURE GRAN % 0.5 % (0.001-0.429); Lymphocyte (Absolute #) 0.73 x10^3/uL (1.18-3.74); Lymphocytes % 8.5 % (19.3-51.7); Mean Cell Volume 107.1 fL (79.4-94.8); Mean Corpuscular Hemoglobin 36.3 pg (25.6-32.2); Mean Corpuscular Hgb Concent. 33.9 g/dL (32.2-35.5); Mean Platelet Volume 11.1 fL (9.4-12.3); Monocytes % 4.7 % (4.7-12.5); Neutrophil % 86.1 % (34.0-71.1); Platelet Count 211 x10^3/uL (182-369); Red Cell Distribution Width 12.2 % (11.7-14.4); White Blood Count 8.6 x10^3/uL (3.98-10.04)
[2024-08-18 04:51] LABS: ALBUMIN 3.8 g/dL (3.5-5.0); ANION GAP 14.7 MEQ/L (5-15); BILIRUBIN,TOTAL 0.5 mg/dL (0.2-1.3); Calcium 9.3 mg/dL (8.4-10.2); Creatinine 1 0.6 mg/dL (0.52-1.04); EST GLOMERULAR FILTRATION RATE 100.8 ML/MIN; Potassium 4.7 mmol/L (3.5-5.1); Total Protein 6.2 g/dL (6.3-8.2)
[2024-08-18 07:28] VITALS: BP 105/65; PULSE 89; RESP 22; TEMP 96.9; O2SAT 94
--- NOTE | 2024-08-18 09:28 | PCM.DS ---
Discharge Summary Date of Admission: 08/16/24 23:20 Date of Discharge: 08/18/24 Admitting Physician: SANTOS MTZ MD Primary Care Provider: SUDHAKAR EDOUARD NATALY Allergies Allergies No Known Drug Allergies Allergy (Verified 08/16/24 18:25) Hospital Summary - Hospital Course Hospital Course: Ms. Acosta is a 64-year-old female with a history of COPD, hypothyroidism, and ongoing tobacco use who presented 08/16/24 with progressively worsening shortness of breath, productive cough, and fatigue over nine days. She reported recent travel to [place] with exposure to family members diagnosed with RSV. Symptoms were unresponsive to her home albuterol, and home pulse oximetry readings ranged from 8892%. She denied fever, chills, or upper respiratory symptoms. In the ED, she was hypoxic and required supplemental oxygen. CTA chest ruled out pulmonary embolism but revealed new focal ground-glass opacities in the left upper lobe, right middle lobe, and right lower lobe, concerning for infectious or inflammatory changes. She was admitted with a diagnosis of community-acquired pneumonia and COPD exacerbation and started on IV antibiotics, solumedrol, and bronchodilators. Infectious workup was negative for COVID-19, influenza, and RSV. Sputum culture later showed gram-positive cocci and gram-negative rods. The patient improved clinically with therapy, and her oxygen requirement stabilized at 2L/min, meeting criteria for home oxygen. She is requesting discharge home today and is in stable condition. Will dismiss with prednisone, cefuroxime, doxycycline, and Duoneb via nebulizer. 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 Discharge Note New Diagnosis:Pneumonia New Medications: Cefuroxime/prednisone/doxycycline Follow Up: pulm/pcp Results pending: sputum culture I spent 35 minutes [id number] with the patient on the day of discharge performing discharge exam, discussing hospital stay and discharge instructions with patient and caregivers, preparation of discharge records, prescriptions & referral forms and addressing any questions/concerns the patient had as documented above. - Vitals & Intake/Output Vital Signs: Vital Signs Temperature 96.9 F 08/18/24 07:27 Pulse Rate 89 08/18/24 07:27 Respiratory Rate 22 08/18/24 07:27 Blood Pressure 105/65 08/18/24 07:27 O2 Sat by Pulse Oximetry 94 L 08/18/24 07:27 Intake & Output: Intake & Output 08/15/24 08/16/24 08/17/24 08/18/24 11:59 11:59 11:59 11:59 Intake Total 480 1320 Output Total 200 Balance 280 1320 Weight 76.8 kg - Lab Result Diagrams: 08/18/24 04:29 08/18/24 04:29 Lab Results-Last 24 Hrs: Lab Results-Last 24 Hours 08/18/24 08/18/24 Range/Units 04:29 04:29 WBC 8.6 (3.98-10.04) x10^3/uL RBC 3.50 L (3.93-5.22) x10^6/uL Hgb 12.7 (11.2-15.7) g/dL Hct 37.5 (34.1-44.9) % MCV 107.1 H (79.4-94.8) fL MCH 36.3 H (25.6-32.2) pg MCHC 33.9 (32.2-35.5) g/dL RDW 12.2 (11.7-14.4) % Plt Count 211 (182-369) x10^3/uL MPV 11.1 (9.4-12.3) fL Gran % 86.1 H (34.0-71.1) % Immature Gran % (Auto) 0.5 H (0.001-0.429) % Nucleat RBC Rel Count 0.0 (0.00-0.2) % Eos # (Auto) 0.01 L (0.04-0.36) x10^3/uL Immature Gran # (Auto) 0.04 H (0.001-0.031) x10^3u/L Absolute Lymphs (auto) 0.73 L (1.18-3.74) x10^3/uL Absolute Monos (auto) 0.40 (0.24-0.86) x10^3/uL Absolute Nucleated RBC 0.00 (0.00-0.012) x10^3u/L Lymphocytes % 8.5 L (19.3-51.7) % Monocytes % 4.7 (4.7-12.5) % Eosinophils % 0.1 L (0.7-5.8) % Basophils % 0.1 (0.1-1.2) % Absolute Granulocytes 7.38 H (1.56-6.13) x10^3/uL Basophils # 0.01 (0.01-0.08) x10^3/uL Sodium 141 (135-145) mmol/L Potassium 4.7 D (3.5-5.1) mmol/L Chloride 105 (98-107) mmol/L Carbon Dioxide 26 (22-30) mmol/L Anion Gap 14.7 (5-15) MEQ/L BUN 15 (7-17) mg/dL Creatinine 0.60 (0.52-1.04) mg/dL Estimated GFR 100.8 ML/MIN Glucose 157 H (74-106) mg/dL Calcium 9.3 (8.4-10.2) mg/dL Total Bilirubin 0.50 (0.2-1.3) mg/dL AST 38 H (14-36) U/L ALT 46 H (0-35) U/L Alkaline Phosphatase 49 (38-126) U/L Serum Total Protein 6.2 L (6.3-8.2) g/dL Albumin 3.8 (3.5-5.0) g/dL Micro Results-Entire Visit: Microbiology 08/17/24 05:06 Gram Stain - Final Sputum - Expectorant - Radiology Exams Ordered Rad Exams-Entire Visit: Radiology Procedures Category Date Time Status CHEST WITH CONTRAST [CT] Stat Exams 08/16/24 19:55 Completed - Procedures and Test Procedures and Tests throughout Hospitalization: Therapy Orders & Screens 08/16/24 19:28 Respiratory Therapy Assessment DAILY Comment: 08/16/24 23:47 Smoking Cessation Education ONCE Comment: Diagnosis: shortness of breath Smoking Status: Current every day smoker How long have you smoked: 15 yrs Have you smoked in the past 12 months: Yes Approximately how many cigarettes per day: 0.5 Do you dip or chew tobacco: No 08/17/24 00:06 Respiratory Therapy Consult ROUTINE Comment: Reason For Exam: Diagnosis: shortness of breath 08/17/24 03:07 Oxygen Nasal Cannula 2 lpm Comment: Diagnosis: shortness of breath Discharge Exam General Appearance: no apparent distress Neurologic Exam: alert, oriented x 3, cooperative Eye Exam: PERRL Ears, Nose, Throat Exam: normal ENT inspection Neck Exam: normal inspection Respiratory Exam: normal breath sounds, crackles/rales Cardiovascular Exam: regular rate/rhythm, normal heart sounds Gastrointestinal/Abdomen Exam: soft, normal bowel sounds Pelvic Exam: deferred Rectal Exam: deferred Back Exam: normal inspection Extremity Exam: normal inspection Skin Exam: normal color Final Diagnosis/Problem List - Final Discharge Diagnosis/Problem (1) Acute respiratory failure with hypoxia Current Visit: Yes Status: Acute Code(s): J96.01 - ACUTE RESPIRATORY FAILURE WITH HYPOXIA (2) Pneumonia Current Visit: Yes Status: Acute Code(s): J18.9 - PNEUMONIA, UNSPECIFIED ORGANISM (3) COPD exacerbation Current Visit: Yes Status: Acute Code(s): J44.1 - CHRONIC OBSTRUCTIVE PULMONARY DISEASE W (ACUTE) EXACERBATION (4) Tobacco abuse Current Visit: Yes Status: Chronic Code(s): Z72.0 - TOBACCO USE (5) HLD (hyperlipidemia) Current Visit: Yes Status: Chronic Code(s): E78.5 - HYPERLIPIDEMIA, UNSPECIFIED (6) Hypothyroid Current Visit: Yes Status: Chronic Code(s): E03.9 - HYPOTHYROIDISM, UNSPECIFIED (7) GERD (gastroesophageal reflux disease) Current Visit: Yes Status: Chronic Code(s): K21.9 - GASTRO-ESOPHAGEAL REFLUX DISEASE WITHOUT ESOPHAGITIS - Discharge Discharge Date: 08/18/24 Disposition: Home, Self-Care Condition: Stable Prescriptions: New Benzonatate 100 mg PO TID PRN 10 Days #30 cap PRN Reason: Cough cefuroxime axetiL [Cefuroxime] 500 mg PO BID 10 Days #20 tablet Prednisone 20 mg [Deltasone 20 mg] 20 mg PO BID 5 Days #10 tablet Albuterol/Ipratropium 3ml Neb* [DUONEB 0.5-3 MG/3 ml Neb] 3 ml IH Q6H PRN 30 Days #120 amp PRN Reason: Shortness Of Breath/Wheezing Doxycycline Hyclate 100 mg [Vibramycin 100 MG] 100 mg PO BID 10 Days #20 tab Continue Albuterol Sulfate [Albuterol Sulfate Hfa] 2 puff IH Q4-6HPRN PRN #2 hfa.aer.ad PRN Reason: Cough Tramadol HCl 50 mg [Ultram 50 mg] 1 tab PO BID PRN PRN Reason: Headache Omeprazole 40 mg PO DAILY Montelukast Sodium 10 mg [Singulair 10 MG] 10 mg PO DAILY Levothyroxine Sodium 50 Mcg [Synthroid 50 Mcg] 50 mcg PO DAILY Ergocalciferol (Vitamin D2) [Vitamin D2] 50,000 unit PO Q7D Metoprolol Succinate 25 mg Xl* [Toprol-Xl 25MG Tablets] 25 mg PO DAILY Instructions: Oxygen therapy at home Additional Instructions: WEAR 2L/NC AT ALL TIMES,ESPECIALLY WHEN AMBULATING CALL KEELY AT [phone] WHEN YOU [facility]AVE [facility] SO THEY CAN DELIVER YOUR HOME CONCENTRATOR Follow up with: SHAHNAZ MALIK [ACTIVE STAFF] - 08/24/24 3:15 pm ([place] Office) SUDHAKAR EDOUARD MD [Primary Care Provider] - 08/24/24 10:45 am
== END 2024-08-18 13:15 | disposition home or self-care (01) ==
LOC: ED 18:05 → MED SURG 23:20
PROVIDERS: ADMIT Internal Medicine; ATTEND Internal Medicine
DX: J96.01 Acute respiratory failure with hypoxia (principal); J18.9 Pneumonia, unspecified organism; J44.1 Chronic obstructive pulmonary disease with (acute) exacerbation; Z72.0 Tobacco use; E78.5 Hyperlipidemia, unspecified; E03.9 Hypothyroidism, unspecified; K21.9 Gastro-esophageal reflux disease without esophagitis
CPT/HCPCS: 0241U; 36415; 71260; 80053; 83605; 83735; 83880; 84484; 85025; 85379; 85610; 87070; 93005; 93041; 93268; 94640; 94760; 96374; 99285; G0378; Q3014; 0202U; J0456; J0696; J1650; J2919; A9270-GY

== ENCOUNTER 2025-02-05 20:57 | Emergency (ER) | payer BC ==
--- NOTE | 2025-02-05 21:19 | ERPHSYRPT ---
- History of Present Illness Time Seen by Provider: 02/05/25 21:10 Source: patient, family Exam Limitations: no limitations Physician History: This is a 64-year-old white female patient who arrives with private vehicle company by her spouse and is a patient of Dr. Edouard with a complaint of 5 days of right eye grittiness sensation as well as a cloudy film intermittently running over the right visual field. Today, there is concern because she had blood the medial canthus. Patient arrives to emergency department without active bleeding. She has no loss of vision. Patient did attempt to see her fruit thinner machine operator today. However they are both out of the office and will be back until 02/08/2025. Patient has no eye pain. Patient was seen in outpatient urgent care clinic and was given a prescription of topical polymyxin drops. Patient is a daily smoker of cigarettes. She has a history of COPD/asthma, hypertension, hypothyroidism and gastroesophageal reflux disease. Timing/Duration: day(s) (5) Location: right eye Severity: mild Apparent Injury: possibly Associated Symptoms: other (Grittiness feeling right eye.) Visual Assistive Devices: None Chemical Exposure: No Trauma: No Welding Arc/Tanning Bed Exposure: No Allergies/Adverse Reactions: No Known Drug Allergies Allergy (Verified 02/05/25 21:23) Home Medications: Tramadol HCl 50 mg [Ultram 50 mg] 1 tab PO BID PRN 04/24/20 [History] Ergocalciferol (Vitamin D2) [Vitamin D2] 50,000 unit PO Q7D 08/16/24 [History] Levothyroxine Sodium 50 Mcg [Synthroid 50 Mcg] 50 mcg PO DAILY 08/16/24 [History] Metoprolol Succinate 25 mg Xl* [Toprol-Xl 25MG Tablets] 25 mg PO DAILY 08/16/24 [History] Montelukast Sodium 10 mg [Singulair 10 MG] 10 mg PO DAILY 08/16/24 [History] Omeprazole 40 mg PO DAILY 08/16/24 [History] Fluticasone/Umeclidin/Vilanter [Trelegy Ellipta 100-62.5-25] 1 puff IH DAILY 02/05/25 [History] Polymyxin B Sulf/Trimethoprim [Polymyxin B-Tmp Eye Drops] 1 drop INTRAOP Q6H 02/05/25 [History] Hx Tetanus, Diphtheria Vaccination/Date Given: Yes Hx Influenza Vaccination/Date Given: Yes Hx Pneumococcal Vaccination/Date Given: No Travel Risk - International Travel Have you traveled outside of the country in past 3 weeks: No - Emerging Infectious Disease Are you exhibiting symptoms associated with any current EIDs: Yes Symptoms: Shortness of Breath - Review of Systems Constitutional: No Symptoms Eyes: Eye Redness, Other (Grittiness right eye. Intermittent film floating across right eye.) Ears, Nose, & Throat: No Symptoms Respiratory: No Symptoms Cardiac: No Symptoms Abdominal/Gastrointestinal: No Symptoms Genitourinary Symptoms: No Symptoms Musculoskeletal: No Symptoms Skin: No Symptoms Neurological: No Symptoms Psychological: No Symptoms Endocrine: No Symptoms Hematologic/Lymphatic: No Symptoms Immunological/Allergic: No Symptoms All Other Systems: Reviewed and Negative - Past Medical History Pertinent Past Medical History: Yes Neurological History: No Pertinent History ENT History: No Pertinent History Cardiac History: No Pertinent History, High Cholesterol, Hypertension Respiratory History: COPD, Pneumonia Endocrine Medical History: No Pertinent History, Hypothyroidism Musculoskeletal History: No Pertinent History GI Medical History: No Pertinent History, GERD History: No Pertinent History Psycho-Social History: Depression Female Reproductive Disorders: No Pertinent History - Past Surgical History Past Surgical History: Yes Neuro Surgical History: No Pertinent History Cardiac: No Pertinent History Respiratory: No Pertinent History Gastrointestinal: No Pertinent History Genitourinary: No Pertinent History Musculoskeletal: No Pertinent History Female Surgical History: Dilation & Curettage, Section Other Surgical History: bunion removal - Social History Smoking Status: Current every day smoker How long have you smoked: 15 yrs Exposure to second hand smoke: No Drug Use: none - Social Determinants of Health Will the patient participate in the screening: Yes Do you worry about a steady place to live?: No In the past 12 months,have you had to go without utilities?: No Transportation Issues: No Has anyone in your support network made you feel unsafe?: No Have you or anyone in your house had to go w/o enough food: No - Nursing Vital Signs Nursing Vital Signs: Initial Vital Signs Pulse Rate 68 02/05/25 21:06 Respiratory Rate 18 02/05/25 21:06 Blood Pressure 164/95 02/05/25 21:06 O2 Sat by Pulse Oximetry 96 02/05/25 21:06 Pain Scale Pain Intensity 1 - Physical Exam General Appearance: no apparent distress, alert, anxiety Intraocular Pressure (Tonopen): both eyes (21 measured of the right side, 22 measured on the left side) Eye Exam: right eye: other (Lower, inner right eyelid inflamed. Small blood clot at the right medial canthus. No active bleeding no apparent globe injury), bilateral eye: PERRL, EOMI Ears, Nose, Throat Exam: normal ENT inspection, moist mucous membranes Neck Exam: normal inspection, non-tender, supple, full range of motion Respiratory Exam: airway intact, No chest tenderness, No respiratory distress Gastrointestinal Exam: No tenderness Extremity Exam: normal inspection, normal range of motion, pelvis stable Neurologic: alert, oriented x 3, cooperative, soil expert II-XII nml as tested, normal mood/affect, nml cerebellar function, nml station & gait, sensation nml Skin Exam: normal color, warm, dry Lymphatic: No adenopathy SpO2 Interpretation: normal O2 Delivery: Room Air - Course Nursing assessment & vital signs reviewed: Yes Ordered Tests: Active Orders 24 hr Category Date Time Status FACIAL BONES WO CONTRAST [CT] Stat Exams 02/05/25 21:19 Completed HEAD WITHOUT CONTRAST [CT] Stat Exams 02/05/25 21:19 Completed - Progress Progress: improved, re-examined Progress Note: 02/05/25 21:29 My medical decision making and the assignment of moderate complexity of this patient's medical issue today is based on review of the patient's past medical history, review the patient's medication list, reviewed patient drug allergy list, history present illness and physical findings on examination. The workup in this patient includes magnification lens inspection, Tres-Pen pressure readings, CT scan of the head and CT scan of the face both without contrast. Differential diagnosis includes but is not limited to elevated intraocular pressure, foreign body, corneal abrasion, bleeding from medial canthus, acute intracranial abnormality, acute facial subcutaneous/bony abnormality 02/05/25 22:[address] scans were performed without contrast and were interpreted by the radiologist. The impressions are as follows: CT scan of the head without contrast is normal CT scan of the facial bones without contrast is normal Counseled pt/family regarding: diagnosis, need for follow-up, rad results Medical Desision Making - Independent Historian Additional History obtained from: Spouse - Diagnostic Testing Diagnostic test were ordered, analyzed, and reviewed by me: Yes Radiological Interpretation: Reviewed by me, Teleradiologist Report - Risk of complications Low Risk: Low risk of morbidity from additional dx testing or treatment The pt has a mod risk of morbidity or mortality based on: Need for prescription drug management - Departure Departure Disposition: Home Clinical Impression: Inflammation of right eyelid Condition: Stable Critical Care Time: No Referrals: SUDHAKAR EDOUARD MD [Primary Care Provider, [facility]] - Follow up/PCP as directed Additional Instructions: Cool or warm compresses to right eye 3 times a day, whichever feels best. Continue your polymyxin eyedrops. Take your steroids and other medications as prescribed. Avoid aspirin and avoid ibuprofen. Return to the emergency department if symptoms recur/worsen. Call your fruit thinner machine operator and your primary care provider on 02/08/2025, to make arrangements for follow-up appointment to be seen next week. Prescriptions: Prednisone 10 mg [Deltasone 10 mg] 10 mg PO TID #6 tablet
[2025-02-05 21:23] VITALS: TEMP 97.8
--- NOTE | 2025-02-05 21:57 | XRAY ---
Indication: Blood right eye. "Cloudy film." Multiple contiguous axial images obtained through the head without contrast. Comparison: None Normal appearing brain parenchyma, ventricles, and bony calvarium. Visualized paranasal sinuses and mastoid air cells are clear. Impression: Normal CT head without contrast exam.
--- NOTE | 2025-02-05 21:59 | XRAY ---
Indication: Blood right eye. "Cloudy film." Multiple contiguous axial images obtained through the facial bones. Sagittal and coronal reformatted images obtained. Comparison: None Numerous dental mild films/implants produces beam artifact limiting these levels. No acute fracture or suspicious bone lesions. Orbits including roof, burnette, and flows intact. Paranasal sinuses and nasal passages are pneumatized and clear. Orbits and retro-orbital structures are bilaterally symmetric. Remaining visualized noncontrasted soft tissues are unremarkable. Impression: Beam artifact from dental amalgams/implants. Otherwise normal CT facial bones without contrast exam.
[2025-02-05] MEDS ORDERED: DELTASONE 20 MG ONE (22:24)
[2025-02-05] MEDS: DELTASONE 20 MG PO ONE (22:25)
[2025-02-05 22:46] VITALS: BP 135/90; PULSE 90; RESP 16; O2SAT 95
== END 2025-02-05 22:45 | disposition home or self-care (01) ==
LOC: ED 20:57
DX: H01.9 Unspecified inflammation of eyelid (principal)